=== PATIENT | male | born 1935 | race Caucasian/White ===

== ENCOUNTER 2020-03-19 12:53 | Emergency (ER) | payer MEDICARE, OTHER, SELFPAY ==
[2020-03-19] VITALS (15 sets, daily range): BP systolic 146–175; BP diastolic 78–99; PULSE 60–74; RESP 11–19; TEMP 36.4; O2SAT 97–100
--- NOTE | ~2020-03-19 | XR_ITS ---
EXAMINATION: XR chest 2V EXAM DATE: 03/19/2020 14:47 INDICATION: Right posterior chest pain. Symptoms about 10 days. TECHNIQUE: Frontal and lateral projections of the chest obtained and reviewed. Comparison is made to prior examination from 06/22/2019. FINDINGS: Moderate chronic hyperinflation. The lungs are clear. There are no pleural effusions. Car diac silhouette is prominent but magnified on this AP technique. There is no pneumothorax suspected . There are bony degenerative changes. IMPRESSION: 1. No acute cardiopulmonary findings. 2. Hyperinflation. Reviewed, dictated and finalized at location A.
--- NOTE | ~2020-03-19 | CT_ITS ---
EXAMINATION: CTA chest PE abdomen pel DATE: 03/19/2020 15:51 INDICATION: Right upper quadrant pain TECHNIQUE: Computed tomography angiography (CTA) of the chest was performed with 100 mL Omnipaque-350 intravenous contrast timed to evaluate the pulmonary arteries. Subsequent postcontrast images of the abdomen and pelvis are obtained. Coronal maximum intensity projection 3D-reconstructions were create d by the technologist. The dose-length product (DLP) was 2195.83 mGy-cm. Automated exposure control a nd iterative reconstruction technique were employed. COMPARISON: 03/13/2015 FINDINGS: CTA CHEST: The pulmonary arteries are well-opacified. No pulmonary embolism is identified. Calcified pulmonary nodules are consistent with old granulomatous disease. There is mild dependent atelectasis. No pleural effusion or pneumothorax is identified. No pathologically enlarged thoracic lymph nodes a re identified. The heart size is normal. Calcified atherosclerosis is noted. There is moderate thorac ic spondylosis. ABDOMEN/PELVIS CT: There is a moderate-sized sliding hiatal hernia. Subtle arterially enhancing cristy s in the left hepatic lobe are consistent with flash filling hemangiomas. The spleen, pancreas, gallb ladder, and adrenal glands are normal. Cysts of the kidneys measure up to 5.9 cm on the left. Peripel mario cysts are noted in both kidneys. There is a wedge-shaped peripheral defect in the lateral aspect of the left kidney, new since the prior examination, and likely reflecting treatment of the previousl y described left kidney mass which is no longer evident. An inferior vena cava filter is noted. No pa thologically enlarged abdominal or pelvic lymph nodes are identified. Colonic diverticulosis is prese nt without evidence of diverticulitis. The appendix is normal. There is no free intraperitoneal gas o r evidence of bowel obstruction. Orthopedic hardware is present in the left femoral neck. Moderate jennie mbar spondylosis is noted. IMPRESSION: 1. No pulmonary embolism identified. 2. No acute abnormality of the abdomen or pelvis. 3. Moderate-sized sliding hiatal hernia. Reviewed, dictated and finalized at location A.
--- NOTE | 2020-03-19 14:11 | ECG_ITS ---
Measurements Intervals [place] Rate: 66 P: -12 MD: 195 QRS: -15 QRSD: 121 T: 13 QT: 410 QTc: 430 Interpretive Statements SINUS RHYTHM RIGHT BUNDLE BRANCH BLOCK BASELINE ARTIFACT- I, II, AVR, V1 ABNORMAL ECG Electronically Signed On 03-19-2020 16:00:42 CDT by Renny Gamble D.O.
[2020-03-19 14:27] LABS: Add Urine Microscopic? NO; Appearance Urine Clear (Clear); Bilirubin Urine Negative (Negative); Blood Urine Negative (Negative); Color Urine Straw (Yellow); Glucose Urine UA Negative (Negative); Ketones Urine Negative (Negative); Leukocyte Esterase Ur Negative LEU/UL (Negative); Nitrate Urine Negative (Negative); Protein Urine Negative (Negative); RBC Urine 0-2 /hpf (0-2); Urobilinogen Urine Negative mg/dL (<2.0); WBC Urine 0-3 /hpf
[2020-03-19 14:41] LABS: Basophils Percent Auto 0.6 % (0.2-1.2); Eosinophils Absolute Auto 0.1 K/mm3 (0-0.3); Eosinophils Percent Auto 2.2 % (0-4.4); Hematocrit 37.7 % (42.0-52.0); Hemoglobin 12.3 g/dL (14.0-18.0); Immature Granulocyte Absolute 0.03 K/mm3 (0.00-0.031); Immature Granulocyte Percent A 0.6 % (0-0.5); Lymphocytes Absolute Auto 1.05 K/mm3 (0.9-3.2); Lymphocytes Percent Auto 21.2 % (18.3-44.2); Mean Corpuscular HGB Conc 32.6 g/dl (32-36); Mean Corpuscular Hemoglobin 28.8 pg (26-34); Mean Corpuscular Volume 88.3 fl (80-100); Mean Platelet Volume 10.4 fl (7.4-10.4); Monocytes Absolute Auto 0.6 K/mm3 (0.1-0.6); Monocytes Percent Auto 11.7 % (2.6-8.5); Neutrophils Absolute Auto 3.2 K/mm3 (1.3-6.7); Neutrophils Percent Auto 63.7 % (45.5-73.1); Platelet Count Result 188 k/mm3 (150-375); Red Blood Count 4.27 M/mm3 (4.6-6.20); Red Cell Distribution Width 16.1 % (11.5-14.5)
[2020-03-19 14:48] LABS: Anion Gap 10 mmol/L (8-16); Blood Urea Nitrogen 23 mg/dL (9-20); Calcium 9.2 mg/dL (8.4-10.2); Carbon Dioxide 27 mmol/L (22-30); Chloride 104 mmol/L (98-107); Estimated CRCL calculation 48 ml/min; Estimated Glomerular Filt Rate 48; Glucose 97 mg/dL (75-110); Potassium 4.1 mmol/L (3.4-5.0); Sodium 141 mmol/L (137-145)
[2020-03-19 14:50] LABS: INR 1.1; Prothrombin Time 13.7 Seconds (11.1-14.7)
[2020-03-19 14:59] LABS: D Dimer 1.37 ug/mL (<0.48)
[2020-03-19 15:00] LABS: NT Pro B Type Natriuretic Pept 159 PG/ML (5-100); Troponin I < 0.012 ng/mL (0.000-0.034)
--- NOTE | 2020-03-19 15:32 | ED.GENADULT ---
HPI - General Adult General Chief complaint: Chest Pain Stated complaint: side pain- pulled 10 days ago Time Seen by Provider: 03/19/20 14:15 Source: patient Limitations: no limitations History of Present Illness HPI narrative: [age] years old white male presents with right upper quadrant pain, intermittent, dull aching, radiating to the back started 10 days ago. Worse with certain movement, better at rest. Patient denies any fever, chills, nausea, vomiting, diarrhea, constipation, urinary symptoms, chest pain or shortness of breath. Patient denies having similar symptoms in the past. Patient denies history of abdominal surgery. Related Data Home Medications Medication Instructions Recorded Confirmed finasteride 5 mg PO HS 06/22/19 06/22/19 tamsulosin 0.4 mg PO HS 06/22/19 06/22/19 Adults Multivitamin 03/19/20 Dialyvite Vitamin D 03/19/20 Fiber (psyllium husk) 03/19/20 Glucosamine Msm 03/19/20 Refresh 03/19/20 docusate sodium 03/19/20 Allergies Allergy/AdvReac Type Severity Reaction Status Date / Time Aminoglycosides Allergy Unknown Unknown Verified 06/22/19 17:02 Macrolide Antibiotics Allergy Unknown Unknown Verified 06/22/19 21:30 Sulfa (Sulfonamide Allergy Unknown Unknown Verified 06/22/19 17:02 Antibiotics) ibuprofen AdvReac Gastrointestinal Verified 03/19/20 14:17 Upset Review of Systems Review of Systems: Narrative: CONSTITUTIONAL: Denies fever, chills, or sweats. EYES: Denies visual changes, redness, or discharge. ENT: Denies rhinorrhea, congestion, sore throat, or otalgia. CARDIOVASCULAR: Denies chest pain, palpitations, or edema. RESPIRATORY: Denies cough or dyspnea. GASTROINTESTINAL: Right upper quadrant pain GENITOURINARY: Denies dysuria or hematuria. SKIN: Denies rash or itching. MUSCULOSKELETAL: Denies back pain, joint pain, or myalgia. NEUROLOGIC: Denies headache, numbness, or weakness. PSYCHIATRIC: Denies anxiety or depression. [facility] Past Medical History Medical History (Updated 03/19/20 @ 17:45 by Gigi Maldonado MD) Arthritis BPH (benign prostatic hyperplasia) Hernia Lymphedema Prostate cancer Surgical History Surgical History H/O hernia repair History of bladder surgery History of hip surgery Family History Family History Mother Cerebrovascular accident Father Acute myocardial infarction Social History Social History Years smoked: 15 Smoking status: Former smoker Alcohol intake: current Substance use: never Gender identity (if verbalized by the patient): Male Spiritual care concerns: No Exam Narrative: Exam Narrative: General appearance: Well-developed, well-nourished Skin: Normal color Head: Normocephalic, nontraumatic Eyes: Clear conjunctiva ENT: Oropharynx normal, ears normal, nose normal Neck: Supple, nontender Chest and respiratory: Airway patent, no respiratory distress, no accessory muscle use Heart: Regular rate/rhythm Abdomen: Soft, moderate tenderness right upper quadrant with light palpation, positive Brower sign., no organomegaly, quiet bowel sounds Vascular: Normal peripheral pulses, normal capillary refill. Musculoskeletal: Normal range of motion, nontender back Neurologic: Alert and oriented ?3, CREDIT COORDINATOR is normal as tested, no gross motor deficit Course Course Emergency Course: Stable Vital Signs Vital signs: Vital Signs Temperature 36.4 C L 03/19/20 12:59 Pulse Rate 61 03/19/20 12:59 Respiratory Rate 17 03/19/20 12:59 Blood Pressure 158/78 H 03/19/20 12:59 Pulse Oximetry 99
[2020-03-19] MEDS: ONDANSETRON INJ 4 MG/2 ML VIAL IV PUSH (16:41)
[2020-03-19] MEDS: MORPHINE SULFATE (*CRX) 4 MG/ML INJ IV PUSH (16:42)
[2020-03-19 17:45] LABS: Troponin I < 0.012 ng/mL (0.000-0.034)
== END 2020-03-19 17:58 | disposition home or self-care (01) ==
PROVIDERS: Emergency Medicine; Emergency Medicine Emergency Medical Services; Emergency Provider Emergency Medicine; PCP Physician Assistant
DX: R10.11 Right upper quadrant pain (principal); K44.9 Diaphragmatic hernia without obstruction or gangrene; Z87.891 Personal history of nicotine dependence; M19.90 Unspecified osteoarthritis, unspecified site; N40.0 Benign prostatic hyperplasia without lower urinary tract symptoms; R94.31 Abnormal electrocardiogram [ECG] [EKG]; Z85.46 Personal history of malignant neoplasm of prostate
CPT/HCPCS: 36415; 71046; 71275; 74177; 80048; 81003; 83880; 84484; 85025; 85380; 85610; 85730; 93005; 96374; 96375; 99284; A9270; J2270; J2405; Q9967

== ENCOUNTER 2020-06-29 14:40 | Inpatient (IN) | payer MEDICARE, OTHER, SELFPAY ==
[2020-06-29] VITALS (13 sets, daily range): BP systolic 122–160; BP diastolic 70–96; PULSE 68–91; RESP 18; TEMP 36.4–36.7; O2SAT 96–100; BMI 33.5
--- NOTE | ~2020-06-29 | US_ITS ---
EXAMINATION: US venous doppler [facility] DATE: 06/30/2020 08:12 INDICATION: Lower limb pain and swelling TECHNIQUE: Grayscale ultrasound images without and with compression and Doppler ultrasound images of the left lower extremity veins were obtained. COMPARISON: 06/27/2019 FINDINGS: New noncompressible deep venous thrombosis in the left gastrocnemius vein. The visualized portions of left common femoral vein, profunda (deep) femoral vein, femoral vein, popliteal vein, peroneal veins , posterior tibial veins and greater saphenous vein outflow are patent. IMPRESSION: 1. [id number] acute deep venous thrombosis in the left gastrocnemius vein. Reviewed, dictated and finalized at location B. [facility] IMPRESSION: 1. [id number] acute deep venous thrombosis in the left gastrocnemius vein.
--- NOTE | 2020-06-29 15:13 | ED.GENADULT ---
HPI - General Adult General Chief complaint: Unspecified Stated complaint: swollen leg, rectal bleeding Time Seen by Provider: 06/29/20 15:13 History of Present Illness HPI narrative: 84 yo male w/ h/o lymphedema presents to the ED for LE pain. He reports that he has had chronic swelling to the LLE for many years. Just recently the swelling has gotten worse. In addition it is now slightly red and painful which is unusual. No fever or systemic symptoms. He also complains of a painful bump near his rectum. He has also noted some small streaks of blood on toilet paper when he wipes. He says that he had something similar years ago that required surgery. Related Data Home Medications Medication Instructions Recorded Confirmed finasteride 5 mg PO DAILY 06/22/19 06/29/20 tamsulosin 0.4 mg PO DAILY 06/22/19 06/29/20 Adults Multivitamin 1 tablet PO DAILY 03/19/20 06/29/20 Glucosamine Msm 1 cap PO DAILY 03/19/20 06/29/20 Refresh See Rx Instructions .ROUTE 03/19/20 06/29/20 .COMPLEX PRN Colace 100 mg PO BID 06/29/20 06/29/20 calcium polycarbophil 625 mg PO DAILY 06/29/20 06/29/20 cholecalciferol (vitamin D3) 2,000 units PO DAILY 06/29/20 06/29/20 Allergies Allergy/AdvReac Type Severity Reaction Status Date / Time Aminoglycosides Allergy Unknown Unknown Verified 06/29/20 20:12 Macrolide Antibiotics Allergy Unknown Unknown Verified 06/29/20 20:12 Sulfa (Sulfonamide Allergy Unknown Unknown Verified 06/29/20 20:12 Antibiotics) ibuprofen AdvReac Gastrointestinal Verified 06/29/20 20:12 Upset Review of Systems Review of Systems: All systems reviewed & are unremarkable except as noted in HPI and below Constitutional: Constitutional: Denies fatigue and Denies fever(s) ENT: Denies dizziness Cardiovascular: Cardiovascular: Denies chest pain Respiratory: Respiratory: Denies cough and Denies dyspnea Gastrointestinal: Gastrointestinal: Denies nausea and Denies vomiting Genitourinary: Genitourinary: Denies dysuria Integumentary/Breasts: Skin/Breast: Reports system reviewed and no additional complaints, except as docu Neurologic: Reports system reviewed and no additional complaints, except as documented PMFSH Past Medical History Medical History BPH (benign prostatic hyperplasia) Hernia Lymphedema Presence of IVC filter Surgical History Surgical History H/O hernia repair History of cataract surgery History of hip surgery Family History Family History Mother Cerebrovascular accident Father Acute myocardial infarction Social History Social History Social History: Patient drinks a couple beers 3-4 nights a week. He does not have any history of alcohol withdrawal. He quit smoking 40 years ago. He does not do drugs. He would like to be full code and if he were to come to a ventilator, he would not like to be on it very long. He says his children can make the decisions after Smoking packs per day: 2 Smoking cigarettes per day: 40.0 Years smoked: 20 Smoking pack-years: 40.00 Smoking status: Former smoker Tobacco type: cigarettes Alcohol intake: current Drinks per week: 10 Substance use: never Gender identity (if verbalized by the patient): Male Spiritual care concerns: No Exam Const: General: healthy appearing, no acute distress and alert Orientation/consciousness: patient oriented x3 HENMT: Head: normal to inspection Neck: Neck: normal visual inspection and no lymphadenopathy Chest: Chest palpation & inspection: no tenderness Resp: Effort & Inspection: normal respiratory effort Auscultation: clear to auscultation bilaterally, no rales, no rhonchi and no wheezes Cardio: Jugular venous distension: no JVD Rate: regular rate Rhythm: regular rhythm
--- NOTE | 2020-06-29 16:19 | ECG_ITS ---
Measurements Intervals [place] Rate: 70 P: 26 [place]: 213 QRS: 12 QRSD: 120 T: 24 QT: 384 QTc: 417 Interpretive Statements SINUS RHYTHM WITH FIRST DEGREE AV BLOCK VENTRICULAR PREMATURE COMPLEX RIGHT BUNDLE BRANCH BLOCK BASELINE ARTIFACT- I, II, III, AVL, AVF, V5-V6 ABNORMAL ECG Electronically Signed On 06-30-2020 7:10:01 CUSTOMER RELATIONS CONSULTANT by Renny Gamble D.O.
[2020-06-29 17:01] LABS: Basophils Percent Auto 0.3 % (0.2-1.2); Eosinophils Absolute Auto 0.1 K/mm3 (0-0.3); Eosinophils Percent Auto 1.5 % (0-4.4); Hemoglobin 11.5 g/dL (14.0-18.0); Immature Granulocyte Absolute 0.04 K/mm3 (0.00-0.031); Immature Granulocyte Percent A 0.6 % (0-0.5); Lymphocytes Absolute Auto 0.96 K/mm3 (0.9-3.2); Lymphocytes Percent Auto 15.5 % (18.3-44.2); Mean Corpuscular HGB Conc 32.9 g/dl (32-36); Mean Corpuscular Hemoglobin 29.6 pg (26-34); Mean Platelet Volume 10.3 fl (7.4-10.4); Monocytes Absolute Auto 1.2 K/mm3 (0.1-0.6); Monocytes Percent Auto 18.9 % (2.6-8.5); Neutrophils Absolute Auto 3.9 K/mm3 (1.3-6.7); Neutrophils Percent Auto 63.2 % (45.5-73.1); Platelet Count Result 186 k/mm3 (150-375); Red Blood Count 3.89 M/mm3 (4.6-6.20); Red Cell Distribution Width 16.1 % (11.5-14.5); White Blood Count 6.2 K/mm3 (4.5-10.0)
[2020-06-29 17:07] LABS: INR 1.1; Prothrombin Time 14.7 Seconds (11.1-14.7)
[2020-06-29 17:08] LABS: Partial Thromboplastin Time 36.6 SECONDS (22.3-36.8)
[2020-06-29 17:20] LABS: Anion Gap 8 mmol/L (8-16); Blood Urea Nitrogen 26 mg/dL (9-20); Calcium 8.5 mg/dL (8.4-10.2); Carbon Dioxide 26 mmol/L (22-30); Chloride 101 mmol/L (98-107); Estimated CRCL calculation 47 ml/min; Estimated Glomerular Filt Rate 48; Glucose 112 mg/dL (75-110); Sodium 135 mmol/L (137-145)
[2020-06-29 17:30] LABS: NT Pro B Type Natriuretic Pept 167 PG/ML (5-100); Troponin I 0.022 ng/mL (0.000-0.034)
--- NOTE | 2020-06-29 19:59 | ADMGEN ---
This patient, Raul Waters, was admitted to Medical Room 348-01. Patient/family oriented to hospital policies and general routines including ID bracelet, bed and alarms, visiting hours, pain management, procedures, bathroom and other care routines, personal items, smoking policy, room service/diet, and visiting hours. Information on how to activate the Rapid Response Team has been discussed. Patient/Family are encouraged to report perceived risks to care and to ask questions if they do not understand what they are told or what they should do.
[2020-06-29] MEDS: PANTOPRAZOLE 40 MG TABLET PO (23:22)
[2020-06-29] MEDS: DOCUSATE SODIUM 100 MG CAPSULE PO (23:22)
[2020-06-29] MEDS: TAMSULOSIN HCL 0.4 MG CAPSULE PO (23:22)
[2020-06-30 05:21] VITALS: BP 134/72; PULSE 77; RESP 14; TEMP 36.2; O2SAT 96
[2020-06-30 06:08] LABS: Estimated CRCL calculation 44 ml/min; Estimated Glomerular Filt Rate 44
[2020-06-30 09:00] VITALS: O2SAT 97
[2020-06-30] MEDS: MULTIVITAMINS THERAPEUTIC TAB (*BKC) 1 TABLET PO (09:10)
[2020-06-30] MEDS: CHOLECALCIFEROL 1,000 UNITS TABLET 2000 UNITS PO (09:10)
[2020-06-30] MEDS: calcium polycarbophiL 625 MG TABLET PO (09:11)
[2020-06-30] MEDS: DOCUSATE SODIUM 100 MG CAPSULE PO ×2 (09:11→20:18)
[2020-06-30] MEDS: FINASTERIDE 5 MG TABLET PO (09:11)
[2020-06-30] MEDS: PANTOPRAZOLE 40 MG TABLET PO ×2 (10:56→20:18)
--- NOTE | 2020-06-30 11:14 | PM.IMHP ---
H&P: HPI History of Present Illness Date/Time: 06/30/20 11:14 Chief Complaint: Left leg swelling Narrative: Raul Watesr is a 84 year old male with a history of DVT, PE, IVC filter, and lymphedema who presented emergency room for redness and pain to the left lower extremity. Patient states he has chronic lymphedema which causes his leg to be chronically swollen and he does not think it is any more swollen than normal but has noticed in the last 3- 4 days that he has been having pain into the area and some redness. He rates his pain a 2-3 at this time. He has not had any shortness of breath, dyspnea on exertion, chest pain, shortness of breath, fevers, chills, cough, abdominal pain, heartburn symptoms, black stool or passing out. He has noticed some loose stools occasionally but nothing significant. He also mentions that he has rectal pain. He has a past what I think is a fistula about 30 years ago and he is worried that is what it is. He got an IVC filter from the [place] years ago. He has no family history of DVT and states he has been walking around per usual at home and has not been more sedentary lately. He does not utilize a walker or any other assistive device and does not have any falls. Review of Systems Review of Systems: All systems reviewed & are unremarkable except as noted in HPI and below PMFSH Past Medical History Medical History (Updated 06/30/20 @ 12:02 by Ventura Vance MD) BPH (benign prostatic hyperplasia) Hernia Lymphedema Presence of IVC filter Surgical History Surgical History (Updated 06/30/20 @ 12:19 by Arleen Juarez PA-C) H/O hernia repair History of cataract surgery History of hip surgery Family History Family History Mother Cerebrovascular accident Father Acute myocardial infarction Social History Social History (Updated 06/30/20 @ 12:20 by Arleen Juarez PA-C) Social History: Patient drinks a couple beers 3-4 nights a week. He does not have any history of alcohol withdrawal. He quit smoking 40 years ago. He does not do drugs. He would like to be full code and if he were to come to a ventilator, he would not like to be on it very long. He says his children can make the decisions after Smoking packs per day: 2 Smoking cigarettes per day: 40.0 Years smoked: 20 Smoking pack-years: 40.00 Smoking status: Former smoker Tobacco type: cigarettes Alcohol intake: current Drinks per week: 10 Substance use: never Gender identity (if verbalized by the patient): Male Spiritual care concerns: No Meds Home Medications and Allergies Home Medications Medication Instructions Recorded Confirmed Type finasteride 5 mg PO DAILY 06/22/19 06/29/20 History tamsulosin 0.4 mg PO DAILY 06/22/19 06/29/20 History pantoprazole 40 mg PO Q12HR #60 tablet 06/25/19 06/29/20 Rx Adults Multivitamin 1 tablet PO DAILY 03/19/20 06/29/20 History Glucosamine Msm 1 cap PO DAILY 03/19/20 06/29/20 History Refresh See Rx Instructions .ROUTE 03/19/20 06/29/20 History .COMPLEX PRN Colace 100 mg PO BID 06/29/20 06/29/20 History calcium polycarbophil 625 mg PO DAILY 06/29/20 06/29/20 History cholecalciferol (vitamin D3) 2,000 units PO DAILY 06/29/20 06/29/20 History Allergies Allergy/AdvReac Type Severity Reaction Status Date / Time Aminoglycosides Allergy Unknown Unknown Verified 06/29/20 20:12 Macrolide Antibiotics Allergy Unknown Unknown Verified 06/29/20 20:12 Sulfa (Sulfonamide Allergy Unknown Unknown Verified 06/29/20 20:12 Antibiotics) ibuprofen AdvReac Gastrointestinal Verified 06/29/20 20:12 Upset Vital Signs Vital Signs - 24 hr 06/29/20 14:43 06/29/20 16:00 06/29/20 16:52 Temperature 97.7 F Pulse Rate 91 68 68 Respiratory Rate 18 18 Blood Pressure 152/76 H 122/96 H Pulse Oximetry 98 100 06/29/20 18:35 06/29/20 18:46 06/29/20 18:50 Temperature Pulse Rate 78 Respirato
--- NOTE | 2020-06-30 11:58 | WPDGICN ---
Assessment and Plan Assessment and plan (1) GERD (gastroesophageal reflux disease): Code(s): K21.9 - Gastro-esophageal reflux disease without esophagitis Status: Acute Assessment and Plan: Patient identified as having severe GE reflux 1 year ago. At that time rather significant esophagitis was identified. Patient has been maintained on pantoprazole 40 mg p.o. b.i.d. since that time. Currently has no symptoms. His hemoglobin has returned to normal. Stools are brown in nature with no evidence of GI blood loss. At the present time I see no contraindication to anticoagulation if absolutely required. Should there be any indication of bleeding follow-up endoscopy can be performed if required. At this present time would suggest monitoring hemoglobin. I will defer necessity of anticoagulation to the primary care service. Patient should remain on pantoprazole 40 mg p.o. b.i.d. along with anti-reflux measures long-term these should include elevating head of bed at night no late snacks. (2) Lymphedema: Code(s): I89.0 - Lymphedema, not elsewhere classified Status: Acute (3) Presence of IVC filter: Code(s): Z95.828 - Presence of other vascular implants and grafts Status: Acute (4) DVT (deep venous thrombosis): Qualifiers: Affected thrombotic vein of extremity: popliteal Chronicity: acute DVT location: lower extremity Laterality: right Qualified Code(s): I82.431 - Acute embolism and thrombosis of right popliteal vein Code(s): I82.409 - Acute embolism and thrombosis of unspecified deep veins of unspecified lower extremity Status: Acute GI Consult Note Consult date/time: 06/30/20 11:58 HPI: Raul Waters is a 84 year old male I am asked to see at the request of the hospitalist service. I am asked to see the patient because of history of a severe esophagitis. Patient with a history of lymphedema. He developed left lower extremity pain and for this reason presented to the emergency room. He was noted to have some erythema a venous Doppler was ordered and it was felt to show a DVT in the left lower extremity. Patient has a distant history of an IVC filter. There is concern over safety of anticoagulation for this reason I have been consulted. Patient underwent endoscopy 1 year ago in June of 2019. At that time severe esophagitis was identified. Patient has been maintained on pantoprazole 40 mg p.o. BID since that time. At that time there was concern over GI blood loss. The patient currently has no pain no dysphagia, no bleeding. His stools are normal and brown in nature. He denies abdominal pain. He continues on pantoprazole b.i.d.. Family history is noncontributory. Review of Systems Review of Systems: All systems reviewed & are unremarkable except as noted in HPI and below PMFSH Past Medical History Medical History (Updated 06/30/20 @ 12:02 by Ventura Vance MD) BPH (benign prostatic hyperplasia) Hernia Lymphedema Presence of IVC filter Surgical History Surgical History (Updated 06/30/20 @ 11:34 by Arleen Juarez PA-C) H/O hernia repair History of hip surgery Family History Family History Mother Cerebrovascular accident Father Acute myocardial infarction Social History Social History Smoking packs per day: 2 Smoking cigarettes per day: 40.0 Years smoked: 20 Smoking pack-years: 40.00 Smoking status: Former smoker Tobacco type: cigarettes Alcohol intake: current Drinks per week: 10 Substance use: never Gender identity (if verbalized by the patient): Male Spiritual care concerns: No Meds Home Medications and Allergies Home Medications Medication Instructions Recorded Confirmed Type finasteride 5 mg PO DAILY 06/22/19 06/29/20 History tamsulosin 0.4 mg PO DAILY 06/22/19 06/29/20 History pantoprazol
[2020-06-30] MEDS: ENOXAPARIN 120 MG/0.8 ML SYRINGE SUB-Q ×2 (13:05→20:18)
[2020-06-30 14:00] VITALS: BP 150/64; PULSE 75; RESP 18; TEMP 36.2; O2SAT 97
[2020-06-30] MEDS: SILVERGEL (ELTA) 45 ML 1 APPLIC TOPICAL (18:12)
[2020-06-30] MEDS: TAMSULOSIN HCL 0.4 MG CAPSULE PO (20:18)
[2020-06-30 21:33] VITALS: BP 126/58; PULSE 70; RESP 18; TEMP 36.4; O2SAT 97
[2020-07-01 00:53] LABS: IFOB Positive Control Positive; Immunochemical Fecal Occult Bl Negative (N)
[2020-07-01 04:49] VITALS: BP 126/64; PULSE 65; RESP 16; TEMP 36.1; O2SAT 97
[2020-07-01 05:38] LABS: Basophils Percent Auto 0.6 % (0.2-1.2); Eosinophils Absolute Auto 0.1 K/mm3 (0-0.3); Eosinophils Percent Auto 2.5 % (0-4.4); Immature Granulocyte Absolute 0.04 K/mm3 (0.00-0.031); Immature Granulocyte Percent A 0.8 % (0-0.5); Lymphocytes Absolute Auto 1.57 K/mm3 (0.9-3.2); Lymphocytes Percent Auto 30.1 % (18.3-44.2); Mean Corpuscular HGB Conc 33.3 g/dl (32-36); Mean Corpuscular Hemoglobin 29.6 pg (26-34); Mean Corpuscular Volume 88.7 fl (80-100); Monocytes Absolute Auto 0.9 K/mm3 (0.1-0.6); Neutrophils Absolute Auto 2.6 K/mm3 (1.3-6.7); Platelet Count Result 198 k/mm3 (150-375); Red Blood Count 3.72 M/mm3 (4.6-6.20); Red Cell Distribution Width 15.9 % (11.5-14.5); White Blood Count 5.2 K/mm3 (4.5-10.0)
[2020-07-01 05:57] LABS: Alanine Aminotransferase 11 U/L (4-50); Albumin Level 3.5 g/dL (3.5-5.1); Alkaline Phosphatase 68 U/L (38-126); Anion Gap 5 mmol/L (8-16); Aspartate Amino Transferase 19 U/L (17-59); Bilirubin,Total 0.5 mg/dL (0.2-1.3); Blood Urea Nitrogen 20 mg/dL (9-20); CRP 3.7 mg/dL (<1.0); Calcium 8.7 mg/dL (8.4-10.2); Carbon Dioxide 27 mmol/L (22-30); Chloride 105 mmol/L (98-107); Estimated CRCL calculation 44 ml/min; Estimated Glomerular Filt Rate 44; Glucose 96 mg/dL (75-110); Potassium 3.9 mmol/L (3.4-5.0); Sodium 137 mmol/L (137-145)
--- NOTE | 2020-07-01 07:12 | WPDGIPROGNO ---
Progress Note: A&P Assessment and Plan (1) GERD (gastroesophageal reflux disease): Code(s): K21.9 - Gastro-esophageal reflux disease without esophagitis Status: Acute Assessment and Plan: Patient had rather severe erosive esophagitis by endoscopy year ago which time he had some bleeding. He has had no bleeding subsequently. Maintained on pantoprazole 40 mg p.o. b.i.d.. He should avoid nonsteroidal anti-inflammatory agents. Current stool is Hemoccult negative and hemoglobin is return to normal. No need to repeat investigation at this time. Should anticoagulation be required it should be okay at this time. (2) Lymphedema: Code(s): I89.0 - Lymphedema, not elsewhere classified Status: Acute Subjective Date/time seen: 07/01/20 07:12 Patient comfortable at rest. Denies abdominal pain. Denies heartburn. States his stools are brown and normal. Hemoccult negative on exam. Denies significant pain to his left leg at this time. States his chronically swollen. Review of Systems Review of Systems: All systems reviewed & are unremarkable except as noted in HPI and below Exam Narrative: Exam Narrative: Physical exam patient is alert. Vital signs stable. He is anicteric. Very hard of hearing. Lungs are clear. Heart without murmur. Abdomen bowel sounds present soft nontender with no organomegaly. Left lower extremity is swollen chronically mild erythema noted. Objective Data Vital Signs Vital Signs: Vital Signs - 24 hr 06/30/20 09:00 06/30/20 14:00 06/30/20 21:33 Temperature 97.1 F L 97.5 F L Pulse Rate 75 70 Respiratory Rate 18 18 Blood Pressure 150/64 H 126/58 L Pulse Oximetry 97 97 97 07/01/20 04:49 Temperature 97 F L Pulse Rate 65 Respiratory Rate 16 Blood Pressure 126/64 Pulse Oximetry 97 Intake/Output Intake/Output: Intake & Output 06/28/20 06/29/20 06/30/20 07/01/20 23:59 23:59 23:59 23:59 Intake Total 500 1740 250 Balance 500 1740 250 Meds/Results Medications: Active Medications Generic Name Dose Route Start Last Admin Trade Name Freq PRN Reason Stop Dose Admin Artificial Tears 1 drop 06/29/20 22:42 06/30/20 20:22 Artificial Tears Op Soln 15 Ml Bottle EACH EYE 1 drop Q4H PRN Administration Dry Eye(s) Calcium Polycarbophil 625 mg 06/30/20 09:00 06/30/20 09:11 Calcium Polycarbophil 625 Mg Tablet PO 07/30/20 09:01 625 mg DAILY HIGINIO Administration Docusate Sodium 100 mg 06/29/20 22:40 06/30/20 20:18 Docusate Sodium 100 Mg Capsule PO 100 mg Q12HR HIGINIO Administration Enoxaparin Sodium 120 mg 06/30/20 12:00 06/30/20 20:18 Enoxaparin 120 Mg/0.8 Ml Syringe SUB-Q 120 mg Q12HR HIGINIO Administration Finasteride 5 mg 06/30/20 09:00 06/30/20 09:11 Finasteride 5 Mg Tablet PO 5 mg DAILY HIGINIO Administration Hydralazine HCl 10 mg 06/30/20 15:25 Hydralazine Hcl 20 Mg/Ml Vial IV PUSH Q8H PRN systolic >170 Vancomycin HCl 1,750 mg in 500 mls @ 250 mls/hr 06/30/20 20:00 06/30/20 22:22 Vancomycin 1,750 Mg/D5w 500 Ml IVPB Infused Q24H HIGINIO Infusion Multivitamins Therapeutic 1 tablet 06/30/20 09:00 06/30/20 09:10 Multivitamins Therapeutic Tab (*Bkc) PO 1 tablet QAM HIGINIO Administration Pantoprazole Sodium 40 mg 06/29/20 22:45 06/30/20 20:18 Pantoprazole 40 Mg Tablet PO 40 mg Q12HR HIGINIO Administration Silver Nitrate 1 applic 06/30/20 17:00 06/30/20 18:12 Silvergel (Elta) 45 Ml TOPICAL 1 applic BID HIGINIO Administration Tamsulosin HCl 0.4 mg 06/29/20 23:20 06/30/20 20:18 Tamsulosin Hcl 0.4 Mg Capsule PO 0.4 mg HS [facility] Administration Vitamin D 2,000 units 06/30/20 09:00 06/30/20 09:10 Cholecalciferol 1,000 Units Tablet PO 07/30/20 09:01 2,000 units DAILY HIGINIO Administration Radiology Results: ITS Impressions Venous Doppler Study 06/30/20 08:17 IMPRESSION: 1. [id number] acute deep venous thrombosis in the left gastrocnemius vein
[2020-07-01] MEDS: CHOLECALCIFEROL 1,000 UNITS TABLET 2000 UNITS PO (09:05)
[2020-07-01] MEDS: DOCUSATE SODIUM 100 MG CAPSULE PO ×2 (09:06→20:14)
[2020-07-01] MEDS: FINASTERIDE 5 MG TABLET PO (09:06)
[2020-07-01] MEDS: calcium polycarbophiL 625 MG TABLET PO (09:06)
[2020-07-01] MEDS: PANTOPRAZOLE 40 MG TABLET PO ×2 (09:06→20:14)
[2020-07-01] MEDS: ENOXAPARIN 120 MG/0.8 ML SYRINGE SUB-Q (09:07)
[2020-07-01] MEDS: SILVERGEL (ELTA) 45 ML 1 APPLIC TOPICAL ×2 (09:08→16:30)
[2020-07-01] MEDS: MULTIVITAMINS THERAPEUTIC TAB (*BKC) 1 TABLET PO (11:12)
--- NOTE | 2020-07-01 11:19 | PM.IMPN ---
Progress Note: A&P Assessment and Plan (1) Left leg DVT: Qualifiers: Affected thrombotic vein of extremity: calf muscle vein Chronicity: acute Qualified Code(s): I82.462 - Acute embolism and thrombosis of left calf muscular vein Code(s): I82.402 - Acute embolism and thrombosis of unspecified deep veins of left lower extremity Status: Acute Assessment and Plan: Ultrasound demonstrates [id number] acute DVT in the left gastrocnemius vein. Patient does have IVC filter in place. In the past, he was not a good candidate for an systemic anticoagulation due to GI bleeding from severe esophagitis around 1 year ago. Seen by GI, Dr. Vance, appreciate recommendations. Patient was started on therapeutic Lovenox yesterday. Case management checking pricing for Eliquis, hope to start Eliquis this evening or tomorrow morning. Given his history of GI bleeding, feel it is prudent to monitor overnight. Monitor Hgb and monitor for any bleeding. (2) Cellulitis of left leg: Code(s): L03.116 - Cellulitis of left lower limb Status: Acute Assessment and Plan: Left leg appears to have cellulitic changes, patient started on antibiotics in the ED. Continue vancomycin. Patient notes his left leg swelling is at baseline, his left leg is always more swollen and he notes it is not any more swollen than his normal. 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 Monitor closely while on Lovenox and transitioning to NOAC. (4) History of GI bleed: Code(s): Z87.19 - Personal history of other diseases of the digestive system Status: Acute Assessment and Plan: As noted above, GI bleed in Jun 2019 from esophagitis and duodenitis. Continue Protonix BID. (5) Rectal abnormality: Code(s): K62.9 - Disease of anus and rectum, unspecified Status: Acute Assessment and Plan: Small <1cm pimple-like wound noted near the rectum, seen by pump and still operator. Continue local wound care. (6) BPH (benign prostatic hyperplasia): Qualifiers: Lower urinary tract symptom presence: unspecified whether lower urinary tract symptoms present Qualified Code(s): N40.0 - Benign prostatic hyperplasia without lower urinary tract symptoms Code(s): N40.0 - Benign prostatic hyperplasia without lower urinary tract symptoms Status: Chronic Assessment and Plan: Continue tamsulosin and finasteride. (7) Presence of IVC filter: Code(s): Z95.828 - Presence of other vascular implants and grafts Status: Acute Assessment and Plan: [facility], seen on the CT abdomen pelvis from 2019 Subjective Date/time seen: 07/01/20 1030 Interval history: Mr. Waters is an 84yo M admitted for left lower extremity DVT and cellulitis. He reports feeling well today and thinks his left leg pain and redness is improving. He denies chest pain or shortness of breath. He has tolerated oral intake without nausea or vomiting. He is eager for discharge. Review of Systems Review of Systems: All systems reviewed & are unremarkable except as noted in HPI and below Exam Narrative: Exam Narrative: General: Elderly male resting comfortably sitting up in bed in no acute distress. HEENT: Normocephalic, EOMI, oral mucosa moist. Hard of hearing ++. Cardiovascular: Rate and rhythm are regular. Respiratory: Lungs clear to auscultation bilaterally. Respirations even and non-labored. Tolerating room air.
[2020-07-01 14:00] VITALS: BP 141/59; PULSE 66; RESP 12; TEMP 37.1; O2SAT 96
[2020-07-01] MEDS: TAMSULOSIN HCL 0.4 MG CAPSULE PO (20:14)
[2020-07-01] MEDS: APIXABAN 5 MG TABLET 10 MG PO (20:14)
[2020-07-01 20:25] VITALS: BP 118/69; PULSE 66; RESP 18; TEMP 36.1; O2SAT 95
[2020-07-02 05:19] VITALS: BP 136/68; PULSE 76; RESP 18; TEMP 36.1; O2SAT 96
[2020-07-02 06:05] LABS: Basophils Percent Auto 0.4 % (0.2-1.2); Eosinophils Absolute Auto 0.2 K/mm3 (0-0.3); Eosinophils Percent Auto 3.5 % (0-4.4); Hematocrit 31.9 % (42.0-52.0); Hemoglobin 10.5 g/dL (14.0-18.0); Immature Granulocyte Absolute 0.06 K/mm3 (0.00-0.031); Immature Granulocyte Percent A 1.3 % (0-0.5); Lymphocytes Absolute Auto 1.28 K/mm3 (0.9-3.2); Lymphocytes Percent Auto 27.8 % (18.3-44.2); Mean Corpuscular HGB Conc 32.9 g/dl (32-36); Mean Corpuscular Hemoglobin 28.9 pg (26-34); Mean Corpuscular Volume 87.9 fl (80-100); Mean Platelet Volume 10.7 fl (7.4-10.4); Monocytes Absolute Auto 0.8 K/mm3 (0.1-0.6); Monocytes Percent Auto 18.3 % (2.6-8.5); Neutrophils Absolute Auto 2.2 K/mm3 (1.3-6.7); Neutrophils Percent Auto 48.7 % (45.5-73.1); Platelet Count Result 231 k/mm3 (150-375); Red Blood Count 3.63 M/mm3 (4.6-6.20); Red Cell Distribution Width 15.8 % (11.5-14.5); White Blood Count 4.6 K/mm3 (4.5-10.0)
[2020-07-02 06:19] LABS: Anion Gap 4 mmol/L (8-16); Blood Urea Nitrogen 19 mg/dL (9-20); Calcium 8.4 mg/dL (8.4-10.2); Carbon Dioxide 30 mmol/L (22-30); Chloride 103 mmol/L (98-107); Estimated CRCL calculation 42 ml/min; Estimated Glomerular Filt Rate 41; Glucose 95 mg/dL (75-110); Magnesium 2.1 mg/dL (1.6-2.3); Sodium 137 mmol/L (137-145)
[2020-07-02] MEDS: DOCUSATE SODIUM 100 MG CAPSULE PO (08:30)
[2020-07-02] MEDS: PANTOPRAZOLE 40 MG TABLET PO (08:30)
[2020-07-02] MEDS: APIXABAN 5 MG TABLET 10 MG PO (08:30)
[2020-07-02] MEDS: MULTIVITAMINS THERAPEUTIC TAB (*BKC) 1 TABLET PO (08:31)
[2020-07-02] MEDS: calcium polycarbophiL 625 MG TABLET PO (08:31)
[2020-07-02] MEDS: FINASTERIDE 5 MG TABLET PO (08:31)
[2020-07-02] MEDS: SILVERGEL (ELTA) 45 ML 1 APPLIC TOPICAL (08:31)
[2020-07-02] MEDS: CHOLECALCIFEROL 1,000 UNITS TABLET 2000 UNITS PO (08:31)
--- NOTE | 2020-07-02 09:53 | PM.DS ---
DS: Admitting Diagnosis Admitting Diagnosis Admitting Diagnosis: left leg DVT DS: Discharge Diagnosis Discharge Diagnosis (1) Left leg DVT: Qualifiers: Affected thrombotic vein of extremity: calf muscle vein Chronicity: acute Qualified Code(s): I82.462 - Acute embolism and thrombosis of left calf muscular vein Code(s): I82.402 - Acute embolism and thrombosis of unspecified deep veins of left lower extremity Status: Acute Assessment and Plan: Date of Admission 06/29/20 Date of Discharge/DOS 07/02/20 Mr. Waters is a pleasant 84yo M with history of chronic normocytic anemia, history of GI bleed due to severe esophagitis around 1 year ago, history of previous DVT/PE s/p IVC placement, BPH who presented to the ED for evaluation of left leg pain and redness. He described that his left leg is always more swollen than his right. He noted his left leg was not any more swollen than usual, but he noted over the last few days prior to arrival he was having increased pain with standing and walking on his left leg. Redness and tenderness to touch on the right leg was also new. Ultrasound demonstrated a below the knee acute DVT in the left gastrocnemius vein. As mentioned, he does have an IVC filter in place. In the past, he was not a good candidate for any systemic anticoagulation due to GI bleeding from severe esophagitis around 1 year ago. He was evaluated here by GI, Dr. Vance, noted his esophagitis had been well-controlled with BID proton pump inhibitor therapy. The IVC filter will help prevent migration/any formation of large PE, however it was felt that he was reasonably safe to start systemic anticoagulation for his new left leg DVT. He was started on therapeutic Lovenox and transitioned to oral Eliquis. He will follow-up with his primary care provider at the [facility] on Tuesday for recommendations on duration of anticoagulation therapy. May benefit from repeat ultrasound of lower extremities down the road if he can avoid indefinite anticoagulation. He was monitored closely while started on anticoagulation at the hospital and he did not show any signs or symptoms of acute bleeding Hgb remains stable. He was also treated with 4 days of IV vancomycin for possible overlying cellulitis over the left lower leg. This area of erythema appears improved after being on antibiotics, thus will prescribe oral Augmentin at discharge to complete a 7-day course of antibiotics. He is hemodynamically stable for discharge on 07/02/20 with Eliquis and instructions to follow-up with his primary care provider. (2) Cellulitis of left leg: Code(s): L03.116 - Cellulitis of left lower limb Status: Acute Assessment and Plan: Left leg appears to have cellulitic changes, patient started on antibiotics in the ED. Treated with 4 days of IV vancomycin, discharged with oral Augmentin. Patient notes his left leg swelling is at baseline, his left leg is always more swollen and he notes it is not any more swollen than his normal. 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 (4) History of GI bleed: Code(s): Z87.19 - Personal history of other diseases of the digestive system Status: Acute Assessment and Plan: As noted above, GI bleed in Jun 2019 from esophagitis and duodenitis. Continue Protonix BID. (5) Rectal abnormality: Code(s): K62.9 - Disease of anus and rectum, unspecified Status: Acute Assessment and Plan: Small <1cm pimple-like wound noted near the rectum, seen by parachute rigger. Continue local wound care. (6) BPH (benign pro
== END 2020-07-02 11:25 | disposition home or self-care (01) | DRG 264 ==
LOC: ANHED 18:51 → ANH3MED 19:09
PROVIDERS: Internal Medicine Gastroenterology; Physician Assistant; Admitting Provider Internal Medicine; Emergency Provider Emergency Medicine; Visit Provider Physician Assistant
DX: I82.462 Acute embolism and thrombosis of left calf muscular vein (principal); L03.116 Cellulitis of left lower limb; K62.9 Disease of anus and rectum, unspecified; I89.0 Lymphedema, not elsewhere classified; D50.0 Iron deficiency anemia secondary to blood loss (chronic); K21.9 Gastro-esophageal reflux disease without esophagitis; N40.0 Benign prostatic hyperplasia without lower urinary tract symptoms; Z95.828 Presence of other vascular implants and grafts; Z87.891 Personal history of nicotine dependence; Z86.718 Personal history of other venous thrombosis and embolism; Z86.711 Personal history of pulmonary embolism; Z87.19 Personal history of other diseases of the digestive system
CPT/HCPCS: 36415; 80048; 80076; 82274; 82565; 83735; 83880; 84484; 85025; 85610; 85730; 86140; 93005; 93971; 96365; 96366; 96372; 99285; A9270; G0378; J1650; J3370

== ENCOUNTER 2020-07-22 12:29 | Emergency (ER) | payer MEDICARE, OTHER, SELFPAY ==
--- NOTE | ~2020-07-22 | XR_ITS ---
XR chest 2V DATE: 07/22/2020 13:01 INDICATION: Shortness of breath TECHNIQUE: AP and lateral views COMPARISON: 03/19/2020 CTA chest abdomen pelvis 03/19/2022 view chest FINDINGS: Heart size is within normal range. Is aortic tortuosity. No hilar or mediastinal enlargemen t is evident. No pulmonary infiltrate or consolidation, pleural effusion or pulmonary vascular congestion or pneumo thorax. Diffuse osteopenia. IMPRESSION: No active cardiac pulmonary disease Aortic tortuosity Diffuse osteopenia Reviewed, dictated and finalized at location [facility]. LE END PRODUCTION GRINDER
--- NOTE | ~2020-07-22 | CT_ITS ---
EXAMINATION: CTA chest PE protocol DATE: 07/22/2020 14:43 INDICATION: Shortness of breath for 2 days TECHNIQUE: Computed tomography angiography (CTA) of the chest was performed with 100 mL Omnipaque-350 intravenous contrast timed to evaluate the pulmonary arteries. Coronal maximum intensity projection 3D-reconstructions were created by the technologist. Automated exposure control and iterative reconst ruction technique were employed. Exam dose: 775.76 mGy-cm total exam DLP. COMPARISON: July 22, 2020 2 view chest 03/19/2020 CT pulmonary scan images FINDINGS: There is diagnostic contrast enhancement of the pulmonary arteries and no evidence of pulmo nary embolism. No thoracic aortic aneurysm or dissection. Cardiomegaly. No pericardial or pleural effusion. There are bilateral calcified pulmonary granulomas. No pulmonary infiltrate or consolidation or pulmo nary mass lesion is evident. Approximately 6.4 cm upper pole left renal cyst is incidentally noted. Normal morphology of the adrenal glands. Small sliding hiatal hernia. Diffuse osteopenia. No suspicious osteolytic or osteoblastic lesions are identified. IMPRESSION: No evidence of pulmonary embolism Reviewed, dictated and finalized at [facility]. Reviewed, dictated and finalized at location [facility]. IME BABYSITTER
[2020-07-22 12:40] VITALS: BP 149/79; PULSE 80; RESP 16; TEMP 37.1; O2SAT 96
--- NOTE | 2020-07-22 12:49 | ECG_ITS ---
Measurements Intervals [place] Rate: 61 P: 108 MO: 234 QRS: -12 QRSD: 120 T: 21 QT: 420 QTc: 424 Interpretive Statements SINUS RHYTHM WITH FIRST DEGREE AV BLOCK VENTRICULAR PREMATURE COMPLEX RIGHT BUNDLE BRANCH BLOCK ABNORMAL ECG Electronically Signed On 07-22-2020 13:05:46 COKE DRAWER HAND by Renny Gamble D.O.
[2020-07-22 13:13] LABS: Basophils Percent Auto 0.6 % (0.2-1.2); Eosinophils Absolute Auto 0.1 K/mm3 (0-0.3); Eosinophils Percent Auto 2.1 % (0-4.4); Hematocrit 37.2 % (42.0-52.0); Hemoglobin 12.1 g/dL (14.0-18.0); Immature Granulocyte Absolute 0.04 K/mm3 (0.00-0.031); Immature Granulocyte Percent A 0.8 % (0-0.5); Lymphocytes Absolute Auto 0.89 K/mm3 (0.9-3.2); Lymphocytes Percent Auto 17.2 % (18.3-44.2); Mean Corpuscular HGB Conc 32.5 g/dl (32-36); Mean Corpuscular Volume 89.2 fl (80-100); Mean Platelet Volume 10.5 fl (7.4-10.4); Monocytes Absolute Auto 0.5 K/mm3 (0.1-0.6); Neutrophils Absolute Auto 3.6 K/mm3 (1.3-6.7); Neutrophils Percent Auto 69.3 % (45.5-73.1); Platelet Count Result 167 k/mm3 (150-375); Red Blood Count 4.17 M/mm3 (4.6-6.20); Red Cell Distribution Width 16.3 % (11.5-14.5); White Blood Count 5.2 K/mm3 (4.5-10.0)
[2020-07-22 13:26] LABS: Anion Gap 7 mmol/L (8-16); Blood Urea Nitrogen 24 mg/dL (9-20); Carbon Dioxide 27 mmol/L (22-30); Chloride 106 mmol/L (98-107); Estimated CRCL calculation 51 ml/min; Estimated Glomerular Filt Rate 52; Glucose 99 mg/dL (75-110); Potassium 4.2 mmol/L (3.4-5.0); Sodium 140 mmol/L (137-145)
[2020-07-22 13:30] VITALS: BP 144/78; PULSE 59; RESP 14; O2SAT 95
--- NOTE | 2020-07-22 13:38 | ED.GENADULT ---
HPI - General Adult General Chief complaint: Shortness of Breath/Dyspnea Stated complaint: sob Time Seen by Provider: 07/22/20 12:49 Source: patient History of Present Illness HPI narrative: Patient is a 84 y/o male complaining of mild SOB for last 2 days. He states that exertion aggravated his SOB. He has no fever, chills, cough or chest pain. He was recently started on Eliquis for DVT. Related Data Home Medications Medication Instructions Recorded Confirmed finasteride 5 mg PO DAILY 06/22/19 06/29/20 tamsulosin 0.4 mg PO DAILY 06/22/19 06/29/20 Adults Multivitamin 1 tablet PO DAILY 03/19/20 06/29/20 Glucosamine Msm 1 cap PO DAILY 03/19/20 06/29/20 Refresh See Rx Instructions .ROUTE 03/19/20 06/29/20 .COMPLEX PRN Colace 100 mg PO BID 06/29/20 06/29/20 calcium polycarbophil 625 mg PO DAILY 06/29/20 06/29/20 cholecalciferol (vitamin D3) 2,000 units PO DAILY 06/29/20 06/29/20 Allergies Allergy/AdvReac Type Severity Reaction Status Date / Time Aminoglycosides Allergy Unknown Unknown Verified 07/22/20 13:02 Macrolide Antibiotics Allergy Unknown Unknown Verified 07/22/20 13:02 Sulfa (Sulfonamide Allergy Unknown Unknown Verified 07/22/20 13:02 Antibiotics) ibuprofen AdvReac Gastrointestinal Verified 07/22/20 13:02 Upset Review of Systems Constitutional: Constitutional: Denies chills, Denies fever(s), Denies headache(s) and Denies weakness Eyes: Eyes: Denies blurry vision ENT: Denies headache(s) and Denies neck pain Cardiovascular: Cardiovascular: Denies chest pain and Reports dyspnea Respiratory: Respiratory: Denies cough and Reports dyspnea Gastrointestinal: Gastrointestinal: Denies abdominal pain, Denies diarrhea, Denies nausea and Denies vomiting Genitourinary: Genitourinary: Denies hematuria and Denies dysuria Musculoskeletal: Musculoskeletal: Denies back pain and Denies neck pain Neurologic: Denies headache(s) and Denies weakness PMFSH Past Medical History Medical History BPH (benign prostatic hyperplasia) Hernia Lymphedema Presence of IVC filter Surgical History Surgical History H/O hernia repair History of cataract surgery History of hip surgery Family History Family History Mother Cerebrovascular accident Father Acute myocardial infarction Social History Social History Social History: Patient drinks a couple beers 3-4 nights a week. He does not have any history of alcohol withdrawal. He quit smoking 40 years ago. He does not do drugs. He would like to be full code and if he were to come to a ventilator, he would not like to be on it very long. He says his children can make the decisions after Smoking packs per day: 2 Smoking cigarettes per day: 40.0 Years smoked: 20 Smoking pack-years: 40.00 Smoking status: Former smoker Tobacco type: cigarettes Alcohol intake: current Drinks per week: 10 Substance use: never Gender identity (if verbalized by the patient): Male Spiritual care concerns: No Exam Const: General: no acute distress and well developed Orientation/consciousness: oriented to person, oriented to place, oriented to time and patient oriented x3 HENMT: Head: normocephalic Ears: external ears normal General nose exam: Normal external nose present Eyes: General: appearance normal, both eyes and all related structures Conjunctivae: conjunctivae normal Neck: Neck: normal visual inspection and full ROM Chest: Chest palpation & inspection: normal inspection of the chest and no tenderness Resp: Effort & Inspection: normal respiratory effort Auscultation: clear to auscultation bilaterally Cardio: Rate: regular rate Rhythm: regular rhythm GI: GI Palp: No abdominal tenderness and Yes Soft to palpation Skin: General skin exam: n
--- NOTE | 2020-07-22 13:43 | PC.NURSE ---
Called lab to add on d dimer and bnp
[2020-07-22 14:06] LABS: NT Pro B Type Natriuretic Pept 190 PG/ML (5-100)
[2020-07-22 14:29] LABS: D Dimer 0.27 ug/mL (<0.48)
[2020-07-22 14:51] VITALS: BP 149/75; PULSE 68; RESP 13; O2SAT 98
[2020-07-22 15:02] VITALS: BP 108/80
[2020-07-22 16:05] VITALS: BP 156/95; PULSE 69; RESP 12; O2SAT 97
== END 2020-07-22 16:05 | disposition home or self-care (01) ==
PROVIDERS: Emergency Provider Emergency Medicine
DX: R06.02 Shortness of breath (principal); N40.0 Benign prostatic hyperplasia without lower urinary tract symptoms; Z98.49 Cataract extraction status, unspecified eye; Z87.891 Personal history of nicotine dependence; I44.0 Atrioventricular block, first degree; I45.10 Unspecified right bundle-branch block; I49.3 Ventricular premature depolarization
CPT/HCPCS: 36415; 71046; 71275; 80048; 83880; 85025; 85380; 93005; 99284; Q9967

== ENCOUNTER 2020-07-23 18:23 | Emergency (ER) | payer MEDICARE, OTHER, SELFPAY ==
[2020-07-23] VITALS (20 sets, daily range): BP systolic 125–154; BP diastolic 71–105; PULSE 59–69; RESP 9–20; TEMP 36.4; O2SAT 94–98
--- NOTE | ~2020-07-23 | XR_ITS ---
EXAMINATION: XR chest 1V portable EXAM DATE: 07/23/2020 18:56 INDICATION: Shortness of breath, dizziness. TECHNIQUE: Portable AP frontal chest x-ray was obtained. Comparison is made to prior examination from 07/22/2020. Correlation also made to CT coronary scan from 07/22. FINDINGS: The rounded right infrahilar paraspinal density is patient's pulmonary vein. The lungs are clear. There are no pleural effusions. The cardiomediastinal silhouette is within normal limits. T here is no pneumothorax suspected. The bones and soft tissues are unremarkable. IMPRESSION: No acute cardiopulmonary findings. Reviewed, dictated and finalized at location A. TROENCEPHALOGRAPH TECHNICIAN
--- NOTE | 2020-07-23 18:32 | ECG_ITS ---
Measurements Intervals [place] Rate: 66 P: -1 DE: 188 QRS: 4 QRSD: 115 T: 43 QT: 405 QTc: 425 Interpretive Statements SINUS RHYTHM VENTRICULAR PREMATURE COMPLEX EARLY PRECORDIAL R/S TRANSITION MINIMAL Q WAVES- ANT/HIGH LAT LEADS BASELINE ARTIFACT- I, II, III, AVR, AVL, AVF, V4-V6 BORDERLINE ECG Electronically Signed On 07-23-2020 19:49:09 LABEL PINKER by Renny Gamble D.O.
[2020-07-23 19:50] LABS: Basophils Percent Auto 0.4 % (0.2-1.2); Eosinophils Absolute Auto 0.1 K/mm3 (0-0.3); Eosinophils Percent Auto 1.3 % (0-4.4); Hematocrit 34.4 % (42.0-52.0); Hemoglobin 11.5 g/dL (14.0-18.0); Immature Granulocyte Absolute 0.04 K/mm3 (0.00-0.031); Immature Granulocyte Percent A 0.5 % (0-0.5); Lymphocytes Absolute Auto 0.81 K/mm3 (0.9-3.2); Lymphocytes Percent Auto 10.9 % (18.3-44.2); Mean Corpuscular HGB Conc 33.4 g/dl (32-36); Mean Corpuscular Hemoglobin 29.6 pg (26-34); Mean Corpuscular Volume 88.4 fl (80-100); Mean Platelet Volume 10.5 fl (7.4-10.4); Monocytes Absolute Auto 0.8 K/mm3 (0.1-0.6); Monocytes Percent Auto 10.2 % (2.6-8.5); Neutrophils Absolute Auto 5.7 K/mm3 (1.3-6.7); Neutrophils Percent Auto 76.7 % (45.5-73.1); Platelet Count Result 166 k/mm3 (150-375); Red Blood Count 3.89 M/mm3 (4.6-6.20); Red Cell Distribution Width 16.2 % (11.5-14.5); White Blood Count 7.4 K/mm3 (4.5-10.0)
[2020-07-23 20:00] LABS: INR 1.1
[2020-07-23 20:01] LABS: Anion Gap 6 mmol/L (8-16); Blood Urea Nitrogen 24 mg/dL (9-20); Calcium 8.8 mg/dL (8.4-10.2); Carbon Dioxide 26 mmol/L (22-30); Chloride 106 mmol/L (98-107); Estimated CRCL calculation 44 ml/min; Estimated Glomerular Filt Rate 44; Glucose 128 mg/dL (75-110); Potassium 4.1 mmol/L (3.4-5.0); Sodium 138 mmol/L (137-145)
[2020-07-23 20:02] LABS: Alanine Aminotransferase 14 U/L (4-50); Albumin Level 3.6 g/dL (3.5-5.1); Alkaline Phosphatase 63 U/L (38-126); Anion Gap 7 mmol/L (8-16); Aspartate Amino Transferase 22 U/L (17-59); Bilirubin,Total 0.4 mg/dL (0.2-1.3); Blood Urea Nitrogen 24 mg/dL (9-20); Calcium 8.8 mg/dL (8.4-10.2); Carbon Dioxide 26 mmol/L (22-30); Chloride 105 mmol/L (98-107); Estimated CRCL calculation 44 ml/min; Estimated Glomerular Filt Rate 44; Glucose 128 mg/dL (75-110); Potassium 4.1 mmol/L (3.4-5.0); Sodium 138 mmol/L (137-145)
[2020-07-23 20:13] LABS: NT Pro B Type Natriuretic Pept 196 PG/ML (5-100); Troponin I < 0.012 ng/mL (0.000-0.034)
[2020-07-23 20:48] LABS: Add Urine Microscopic? NO; Appearance Urine Clear (Clear); Bilirubin Urine Negative (Negative); Blood Urine Negative (Negative); Color Urine Yellow (Yellow); Glucose Urine UA Negative (Negative); Ketones Urine Negative (Negative); Leukocyte Esterase Ur Negative LEU/UL (Negative); Nitrate Urine Negative (Negative); Protein Urine Negative (Negative); Specific Grav Ur 1.014 (1.001-1.035); Urobilinogen Urine Negative mg/dL (<2.0)
--- NOTE | 2020-07-23 21:18 | ED.GENADULT ---
HPI - General Adult General Chief complaint: Shortness of Breath/Dyspnea Stated complaint: Dizzy, SOB Time Seen by Provider: 07/23/20 18:25 Source: patient Mode of arrival: EMS Limitations: no limitations History of Present Illness HPI narrative: 84-year-old with a history of BPH, GERD, DVT on Eliquis here with complaints of dizziness and shortness of breath, patient states that he just ate his dinner probably eating too much which made him dizzy. He states that he had 2 servings of hamburger helper. He denied any chest pain, nausea or vomiting. States he is feeling much better at this time. Patient states that he has been having these symptoms on and off however today his symptoms were intense so she called 911. Patient denies any blood in the stool or black-colored stool with Onset (ago): minute(s) (30) Related Data Home Medications Medication Instructions Recorded Confirmed finasteride 5 mg PO DAILY 06/22/19 06/29/20 tamsulosin 0.4 mg PO DAILY 06/22/19 06/29/20 Adults Multivitamin 1 tablet PO DAILY 03/19/20 06/29/20 Glucosamine Msm 1 cap PO DAILY 03/19/20 06/29/20 Refresh See Rx Instructions .ROUTE 03/19/20 06/29/20 .COMPLEX PRN Colace 100 mg PO BID 06/29/20 06/29/20 calcium polycarbophil 625 mg PO DAILY 06/29/20 06/29/20 cholecalciferol (vitamin D3) 2,000 units PO DAILY 06/29/20 06/29/20 Allergies Allergy/AdvReac Type Severity Reaction Status Date / Time Aminoglycosides Allergy Unknown Unknown Verified 07/23/20 18:33 Macrolide Antibiotics Allergy Unknown Unknown Verified 07/23/20 18:33 Sulfa (Sulfonamide Allergy Unknown Unknown Verified 07/23/20 18:33 Antibiotics) ibuprofen AdvReac Gastrointestinal Verified 07/23/20 18:33 Upset Review of Systems Review of Systems: All systems reviewed & are unremarkable except as noted in HPI and below Constitutional: Constitutional: Reports no additional constitutional complaints Eyes: Eyes: Reports no additional eye complaints ENT: Reports system reviewed and no additional complaints, except as documented Cardiovascular: Cardiovascular: Reports no additional cardiovascular complaints Respiratory: Respiratory: Reports no additional respiratory complaints Gastrointestinal: Gastrointestinal: Reports no additional gastrointestinal complaints Musculoskeletal: Musculoskeletal: Reports no additional musculoskeletal complaints Integumentary/Breasts: Skin/Breast: Reports system reviewed and no additional complaints, except as docu PMFSH Past Medical History Medical History BPH (benign prostatic hyperplasia) Hernia Lymphedema Presence of IVC filter Surgical History Surgical History H/O hernia repair History of cataract surgery History of hip surgery Family History Family History Mother Cerebrovascular accident Father Acute myocardial infarction Social History Social History Social History: Patient drinks a couple beers 3-4 nights a week. He does not have any history of alcohol withdrawal. He quit smoking 40 years ago. He does not do drugs. He would like to be full code and if he were to come to a ventilator, he would not like to be on it very long. He says his children can make the decisions after Smoking packs per day: 2 Smoking cigarettes per day: 40.0 Years smoked: 20 Smoking pack-years: 40.00 Smoking status: Former smoker Tobacco type: cigarettes Alcohol intake: current Drinks per week: 10 Substance use: never Gender identity (if verbalized by the patient): Male Spiritual care concerns: No Exam Narrative: Exam Narrative: GENERAL: Well-appearing, well-nourished, and in no acute distress. HEAD: Normocephalic, atraumatic. EYES: PERRLA and EOMI.. NECK: Supple. CHEST: Clear to auscultation. No respiratory
== END 2020-07-23 21:40 | disposition home or self-care (01) ==
PROVIDERS: Emergency Provider Family Medicine
DX: R42 Dizziness and giddiness (principal); N40.0 Benign prostatic hyperplasia without lower urinary tract symptoms; Z86.718 Personal history of other venous thrombosis and embolism; K21.9 Gastro-esophageal reflux disease without esophagitis; Z79.01 Long term (current) use of anticoagulants; Z98.49 Cataract extraction status, unspecified eye; Z87.891 Personal history of nicotine dependence; I49.3 Ventricular premature depolarization; R94.31 Abnormal electrocardiogram [ECG] [EKG]
CPT/HCPCS: 36415; 71045; 80048; 80053; 81003; 83880; 84484; 85025; 85610; 93005; 99284

== ENCOUNTER 2020-07-28 14:38 | Emergency (ER) | payer MEDICARE, OTHER, SELFPAY ==
[2020-07-28 14:47] VITALS: BP 163/95; PULSE 74; RESP 20; TEMP 36.3; O2SAT 100
--- NOTE | 2020-07-28 15:18 | ED.GENADULT ---
HPI - General Adult General Chief complaint: Recheck/Abnormal Lab/Rx Stated complaint: Perscription Refill Time Seen by Provider: 07/28/20 15:03 Source: RN notes reviewed History of Present Illness HPI narrative: Patient presents to emergency department from home for medication refill patient was seen in the emergency department approximately a month ago and found to have a DVT at that time he was started on Eliquis starter pack he has 2 days left of the Eliquis starter pack patient is followed at the [facility] but does not have an appointment until next and will be out of his medication before then he is requesting a refill of his Eliquis he denies any fevers or chills chest pain abdominal pain nausea vomiting or any other symptoms he states he does have intermittent shortness of breath which has been worked up in our emergency department over the past month with negative work-ups he denies any current shortness of breath Related Data Home Medications Medication Instructions Recorded Confirmed finasteride 5 mg PO DAILY 06/22/19 06/29/20 tamsulosin 0.4 mg PO DAILY 06/22/19 06/29/20 Adults Multivitamin 1 tablet PO DAILY 03/19/20 06/29/20 Glucosamine Msm 1 cap PO DAILY 03/19/20 06/29/20 Refresh See Rx Instructions .ROUTE 03/19/20 06/29/20 .COMPLEX PRN Colace 100 mg PO BID 06/29/20 06/29/20 calcium polycarbophil 625 mg PO DAILY 06/29/20 06/29/20 cholecalciferol (vitamin D3) 2,000 units PO DAILY 06/29/20 06/29/20 Allergies Allergy/AdvReac Type Severity Reaction Status Date / Time Aminoglycosides Allergy Unknown Unknown Verified 07/28/20 15:03 Macrolide Antibiotics Allergy Unknown Unknown Verified 07/28/20 15:03 Sulfa (Sulfonamide Allergy Unknown Unknown Verified 07/28/20 15:03 Antibiotics) ibuprofen AdvReac Gastrointestinal Verified 07/28/20 15:03 Upset Review of Systems Review of Systems: Narrative: Gen.: Denies fevers or chills ENT: Denies congestion Respiratory: Denies shortness of breath or cough CV: Denies chest pain or palpitations GI: Denies abdominal pain nausea, emesis or diarrhea Musculoskeletal: Denies back pain or muscle pain Neuro: Denies numbness, tingling, weakness or focal weakness Skin: Denies rash Except as documented, all other systems reviewed and negative [facility] Past Medical History Medical History BPH (benign prostatic hyperplasia) Hernia Lymphedema Presence of IVC filter Surgical History Surgical History H/O hernia repair History of cataract surgery History of hip surgery Family History Family History Mother Cerebrovascular accident Father Acute myocardial infarction Social History Social History Social History: Patient drinks a couple beers 3-4 nights a week. He does not have any history of alcohol withdrawal. He quit smoking 40 years ago. He does not do drugs. He would like to be full code and if he were to come to a ventilator, he would not like to be on it very long. He says his children can make the decisions after Smoking packs per day: 2 Smoking cigarettes per day: 40.0 Years smoked: 20 Smoking pack-years: 40.00 Smoking status: Former smoker Tobacco type: cigarettes Alcohol intake: current Drinks per week: 10 Substance use: never Gender identity (if verbalized by the patient): Male Spiritual care concerns: No Exam Narrative: Exam Narrative: APPEARANCE: No acute distress, nontoxic, resting in bed EYES: EOMI HEENT: Normocephalic, atraumatic, OMM RESPIRATORY: No respiratory distress Clear to auscultation bilaterally with no rhonchi wheezing or rales. CARDIOVASCULAR: Regular rate and rhythm without murmurs rubs or gallops. ABDOMINAL: Soft, nontender, nondistended, no rebound or guarding MUSCULOSKELETAl: Moves all extremities
== END 2020-07-28 15:48 | disposition home or self-care (01) ==
PROVIDERS: Emergency Provider Emergency Medicine
DX: I82.402 Acute embolism and thrombosis of unspecified deep veins of left lower extremity (principal); N40.0 Benign prostatic hyperplasia without lower urinary tract symptoms; Z98.49 Cataract extraction status, unspecified eye; Z87.891 Personal history of nicotine dependence
CPT/HCPCS: 99281

== ENCOUNTER 2020-11-17 14:20 | Emergency (ER) | payer MEDICARE, OTHER, SELFPAY ==
--- NOTE | ~2020-11-17 | US_ITS ---
EXAMINATION: US venous doppler [facility] EXAM DATE: 11/17/2020 15:04 INDICATION: Left leg pain. TECHNIQUE: Multiple grayscale, color flow and Doppler images of the left lower extremity deep venous system were obtained and reviewed. There is no prior study for comparison. FINDINGS: The left common femoral, femoral and profunda veins demonstrate normal color flow, respirat ory variation, augmentation and compressibility. Compressibility, color flow confirmed within the le ft popliteal, posterior tibial, peroneal veins. IMPRESSION: 1. No left lower extremity deep venous thrombosis. Reviewed, dictated and finalized at location B.
[2020-11-17 14:24] VITALS: BP 117/91; PULSE 83; RESP 18; TEMP 37.1; O2SAT 99
--- NOTE | 2020-11-17 14:41 | PC.NURSE ---
pt to ultrasound at this time
--- NOTE | 2020-11-17 14:43 | ED.GENADULT ---
HPI - General Adult General Chief complaint: Extremity Problem,Nontraumatic Stated complaint: L LEG PAIN X2D Time Seen by Provider: 11/17/20 14:26 Source: patient History of Present Illness HPI narrative: Patient is a 84 y/o male complaining of left lower leg pain starting yesterday. He describes his pain as aching and rates it as 2-3/10. There is no alleviating or exacerbating factor. He is able to ambulate. He has some left lower leg redness. He has no fever, chills, chest pain or SOB. Related Data Home Medications Medication Instructions Recorded Confirmed finasteride 5 mg PO DAILY 06/22/19 06/29/20 tamsulosin 0.4 mg PO DAILY 06/22/19 06/29/20 Adults Multivitamin 1 tablet PO DAILY 03/19/20 06/29/20 Glucosamine Msm 1 cap PO DAILY 03/19/20 06/29/20 Refresh See Rx Instructions .ROUTE 03/19/20 06/29/20 .COMPLEX PRN Colace 100 mg PO BID 06/29/20 06/29/20 calcium polycarbophil 625 mg PO DAILY 06/29/20 06/29/20 cholecalciferol (vitamin D3) 2,000 units PO DAILY 06/29/20 06/29/20 Allergies Allergy/AdvReac Type Severity Reaction Status Date / Time Aminoglycosides Allergy Unknown Unknown Verified 07/28/20 15:03 Macrolide Antibiotics Allergy Unknown Unknown Verified 07/28/20 15:03 Sulfa (Sulfonamide Allergy Unknown Unknown Verified 07/28/20 15:03 Antibiotics) ibuprofen AdvReac Gastrointestinal Verified 07/28/20 15:03 Upset Review of Systems Constitutional: Constitutional: Denies chills, Denies fever(s), Denies headache(s) and Denies weakness Eyes: Eyes: Denies blurry vision ENT: Denies headache(s) and Denies neck pain Cardiovascular: Cardiovascular: Denies chest pain and Denies dyspnea Respiratory: Respiratory: Denies cough and Denies dyspnea Gastrointestinal: Gastrointestinal: Denies abdominal pain, Denies diarrhea, Denies nausea and Denies vomiting Genitourinary: Genitourinary: Denies hematuria and Denies dysuria Musculoskeletal: Musculoskeletal: Denies back pain, Denies neck pain and Reports other (left leg pain) Integumentary/Breasts: Skin/Breast: Reports erythema (left lower leg) Neurologic: Denies headache(s) and Denies weakness PMFSH Past Medical History Medical History BPH (benign prostatic hyperplasia) Hernia Lymphedema Presence of IVC filter Surgical History Surgical History H/O hernia repair History of cataract surgery History of hip surgery Family History Family History Mother Cerebrovascular accident Father Acute myocardial infarction Social History Social History Social History: Patient drinks a couple beers 3-4 nights a week. He does not have any history of alcohol withdrawal. He quit smoking 40 years ago. He does not do drugs. He would like to be full code and if he were to come to a ventilator, he would not like to be on it very long. He says his children can make the decisions after Smoking packs per day: 2 Smoking cigarettes per day: 40.0 Years smoked: 20 Smoking pack-years: 40.00 Smoking status: Former smoker Tobacco type: cigarettes Alcohol intake: current Drinks per week: 10 Substance use: never Gender identity (if verbalized by the patient): Male Spiritual care concerns: No Exam Const: General: no acute distress and well developed Orientation/consciousness: oriented to person, oriented to place, oriented to time and patient oriented x3 HENMT: Head: normocephalic Ears: external ears normal General nose exam: Normal external nose present Eyes: General: appearance normal, both eyes and all related structures Conjunctivae: conjunctivae normal Neck: Neck: normal visual inspection and full ROM Chest: Chest palpation & inspection: normal inspection of the chest and no tenderness Resp: Effort & Inspection: normal respiratory
[2020-11-17 15:44] LABS: Basophils Percent Auto 0.3 % (0.2-1.2); Eosinophils Absolute Auto 0.1 K/mm3 (0-0.3); Eosinophils Percent Auto 0.9 % (0-4.4); Hematocrit 37.2 % (42.0-52.0); Hemoglobin 12.3 g/dL (14.0-18.0); Immature Granulocyte Absolute 0.02 K/mm3 (0.00-0.031); Immature Granulocyte Percent A 0.3 % (0-0.5); Lymphocytes Absolute Auto 0.83 K/mm3 (0.9-3.2); Lymphocytes Percent Auto 12.5 % (18.3-44.2); Mean Corpuscular HGB Conc 33.1 g/dl (32-36); Mean Corpuscular Hemoglobin 29.2 pg (26-34); Mean Corpuscular Volume 88.4 fl (80-100); Mean Platelet Volume 10.1 fl (7.4-10.4); Monocytes Absolute Auto 1.3 K/mm3 (0.1-0.6); Monocytes Percent Auto 18.9 % (2.6-8.5); Neutrophils Absolute Auto 4.4 K/mm3 (1.3-6.7); Neutrophils Percent Auto 67.1 % (45.5-73.1); Platelet Count Result 165 k/mm3 (150-375); Red Blood Count 4.21 M/mm3 (4.6-6.20); White Blood Count 6.6 K/mm3 (4.5-10.0)
[2020-11-17 15:54] LABS: Anion Gap 13 mmol/L (8-16); Blood Urea Nitrogen 24 mg/dL (9-20); Calcium 9.2 mg/dL (8.4-10.2); Carbon Dioxide 21 mmol/L (22-30); Chloride 104 mmol/L (98-107); Estimated CRCL calculation 45 ml/min; Estimated Glomerular Filt Rate 44; Glucose 174 mg/dL (75-110); Potassium 3.7 mmol/L (3.4-5.0); Sodium 138 mmol/L (137-145)
[2020-11-17 15:56] LABS: INR 1.1; Prothrombin Time 14.9 Seconds (11.1-14.7)
[2020-11-17 15:57] LABS: Partial Thromboplastin Time 38.4 SECONDS (22.3-36.8)
[2020-11-17 18:42] VITALS: BP 154/81; PULSE 64; RESP 18; O2SAT 100
== END 2020-11-17 18:55 | disposition home or self-care (01) ==
PROVIDERS: Emergency Provider Emergency Medicine
DX: L03.116 Cellulitis of left lower limb (principal); N40.0 Benign prostatic hyperplasia without lower urinary tract symptoms
CPT/HCPCS: 36415; 80048; 85025; 85610; 85730; 93971; 99284

== ENCOUNTER 2021-01-07 19:27 | Emergency (ER) | payer MEDICARE, OTHER, SELFPAY ==
[2021-01-07 19:39] VITALS: BP 154/70; PULSE 78; RESP 18; TEMP 37.7; O2SAT 98
[2021-01-07 20:06] LABS: Basophils Percent Auto 0.4 % (0.2-1.2); Eosinophils Absolute Auto 0.1 K/mm3 (0-0.3); Eosinophils Percent Auto 0.9 % (0-4.4); Immature Granulocyte Absolute 0.05 K/mm3 (0.00-0.031); Immature Granulocyte Percent A 0.6 % (0-0.5); Lymphocytes Absolute Auto 0.87 K/mm3 (0.9-3.2); Lymphocytes Percent Auto 10.3 % (18.3-44.2); Mean Corpuscular HGB Conc 33.3 g/dl (32-36); Mean Corpuscular Hemoglobin 29.3 pg (26-34); Mean Platelet Volume 10.3 fl (7.4-10.4); Monocytes Absolute Auto 1.6 K/mm3 (0.1-0.6); Monocytes Percent Auto 18.8 % (2.6-8.5); Neutrophils Absolute Auto 5.9 K/mm3 (1.3-6.7); Platelet Count Result 169 k/mm3 (150-375); Red Blood Count 4.09 M/mm3 (4.6-6.20); Red Cell Distribution Width 15.9 % (11.5-14.5); White Blood Count 8.5 K/mm3 (4.5-10.0)
[2021-01-07 20:15] LABS: Lactic Acid Reflex 0.6 mmol/L (0.7-2.1)
[2021-01-07 20:18] LABS: Alanine Aminotransferase 12 U/L (4-50); Albumin Level 4.2 g/dL (3.5-5.1); Alkaline Phosphatase 85 U/L (38-126); Anion Gap 5 mmol/L (8-16); Aspartate Amino Transferase 20 U/L (17-59); Bilirubin,Total 0.6 mg/dL (0.2-1.3); Blood Urea Nitrogen 25 mg/dL (9-20); Carbon Dioxide 26 mmol/L (22-30); Chloride 105 mmol/L (98-107); Estimated CRCL calculation 41 ml/min; Estimated Glomerular Filt Rate 41; Glucose 105 mg/dL (65-110); Potassium 4.1 mmol/L (3.4-5.0); Sodium 136 mmol/L (137-145)
--- NOTE | 2021-01-07 21:26 | ED.GENADULT ---
HPI - General Adult General Chief complaint: Extremity Problem,Nontraumatic Stated complaint: my leg infection is back Time Seen by Provider: 01/07/21 21:13 History of Present Illness HPI narrative: Patient is a 85-year-old gentleman who presents the emergency department with chief complaint of redness of left lower extremity. The patient reports that he has had cellulitis and also has had a DVT before in the past patient states that he is currently not on blood thinners due to GI bleeding. Patient states that he noticed today that he started having some redness below the knee on the left lower extremity reports that it is a little uncomfortable. Patient states it feels very similar to whenever he had cellulitis about 2 months ago. Patient denies fever denies chills denies shortness of breath or chest pain. Related Data Home Medications Medication Instructions Recorded Confirmed finasteride 5 mg PO DAILY 06/22/19 06/29/20 tamsulosin 0.4 mg PO DAILY 06/22/19 06/29/20 Adults Multivitamin 1 tablet PO DAILY 03/19/20 06/29/20 Glucosamine Msm 1 cap PO DAILY 03/19/20 06/29/20 Refresh See Rx Instructions .ROUTE 03/19/20 06/29/20 .COMPLEX PRN Colace 100 mg PO BID 06/29/20 06/29/20 calcium polycarbophil 625 mg PO DAILY 06/29/20 06/29/20 cholecalciferol (vitamin D3) 2,000 units PO DAILY 06/29/20 06/29/20 Allergies Allergy/AdvReac Type Severity Reaction Status Date / Time Aminoglycosides Allergy Unknown Unknown Verified 07/28/20 15:03 Macrolide Antibiotics Allergy Unknown Unknown Verified 07/28/20 15:03 Sulfa (Sulfonamide Allergy Unknown Unknown Verified 07/28/20 15:03 Antibiotics) ibuprofen AdvReac Gastrointestinal Verified 07/28/20 15:03 Upset Review of Systems Review of Systems: A 10 system review of systems was completed on the patient and is negative except for what is stated in the HPI. Nursing and ancillary documentation was reviewed. [facility] Past Medical History Medical History BPH (benign prostatic hyperplasia) Hernia Lymphedema Presence of IVC filter Surgical History Surgical History H/O hernia repair History of cataract surgery History of hip surgery Family History Family History Mother Cerebrovascular accident Father Acute myocardial infarction Social History Social History Social History: Patient drinks a couple beers 3-4 nights a week. He does not have any history of alcohol withdrawal. He quit smoking 40 years ago. He does not do drugs. He would like to be full code and if he were to come to a ventilator, he would not like to be on it very long. He says his children can make the decisions after Smoking packs per day: 2 Smoking cigarettes per day: 40.0 Years smoked: 20 Smoking pack-years: 40.00 Smoking status: Former smoker Tobacco type: cigarettes Alcohol intake: current Drinks per week: 10 Substance use: never Gender identity (if verbalized by the patient): Male Spiritual care concerns: No Exam Narrative: GENERAL: Well-appearing, well-nourished, and in no acute distress. HEAD: Normocephalic, atraumatic. EYES: PERRLA and EOMI. ENT: Nares clear, no rhinorrhea or epistaxis. Mucous membranes moist. NECK: Supple. CHEST: Clear to auscultation. No respiratory distress. HEART: Regular rate and rhythm. No murmur heard. Normal peripheral pulses. ABDOMEN: Soft, nontender, nondistended, normal active bowel sounds. EXTREMITIES: Normal range of motion. No edema. Slight redness on the left lower extremity below the knee. There is no calf tenderness. SKIN: Warm, dry, no rash. NEURO: No focal deficits. Alert and oriented x3. PSYCH: Normal mood and affect. Course Course Emergency Course: The patient will be scheduled
== END 2021-01-07 21:49 | disposition home or self-care (01) ==
PROVIDERS: Family Medicine; Emergency Provider Emergency Medicine
DX: L03.116 Cellulitis of left lower limb (principal)
CPT/HCPCS: 36415; 80053; 83605; 85025; 87040; 99283

== ENCOUNTER 2021-01-08 08:07 | Outpatient (CLI) | payer MEDICARE, SELFPAY ==
--- NOTE | ~2021-01-08 | US_ITS ---
EXAMINATION: US venous doppler [facility] DATE: 01/08/2021 08:50 INDICATION: Left lower limb pain TECHNIQUE: Nevarez scale images without and with compression and Doppler images of the left lower extrem ity veins were obtained. COMPARISON: 11/17/2020 FINDINGS: The left common femoral vein, profunda femoral vein, femoral vein, popliteal vein, peroneal trunk, posterior tibial veins, and greater saphenous vein are patent. IMPRESSION: 1. Patent left lower extremity veins. No evidence of deep venous thrombosis. Reviewed, dictated and finalized at location A.
== END 2021-01-08 08:08 | disposition home or self-care (01) ==
DX: M79.662 Pain in left lower leg (principal); M79.89 Other specified soft tissue disorders
CPT/HCPCS: 93971

== ENCOUNTER 2021-01-22 14:31 | Emergency (ER) | payer MEDICARE, SELFPAY ==
--- NOTE | ~2021-01-22 | XR_ITS ---
XR tibia fibula LT 2V DATE: 01/22/2021 18:58 INDICATION: Redness and swelling. History of cellulitis. No injury. TECHNIQUE: AP and lateral views COMPARISON: 01/07/2021 venous duplex examination of left leg FINDINGS: There is diffuse osteopenia. No fracture or dislocation, periosteal reaction or bone destru ction. Arterial calcification. Soft tissue swelling, including anterior mid lower leg soft tissue swelling. Mild plantar calcaneal enthesopathy. Pes planus.. IMPRESSION: Soft tissue swelling Osteopenia Mild plantar calcaneal enthesopathy Pes planus Reviewed, dictated and finalized at location A.
[2021-01-22 14:35] VITALS: BP 156/96; PULSE 84; RESP 18; TEMP 36.8; O2SAT 96
[2021-01-22 16:54] VITALS: BP 141/80; PULSE 73; RESP 14; TEMP 36.9; O2SAT 98
--- NOTE | 2021-01-22 19:11 | ED.SKABFB ---
HPI - Skin/Abscess/Foreign Bdy General Chief complaint: Skin/Abscess/Foreign Body Stated complaint: left leg cellulitis Time Seen by Provider: 01/22/21 18:21 Source: patient and RN notes reviewed Mode of arrival: ambulatory Limitations: no limitations History of Present Illness HPI narrative: This is an 85 year old male with history of chronic lymphedema who presents for evaluation of redness to his left lower leg. He states he was evaluated 2 weeks ago for left leg redness, and he was discharged on doxycycline for cellulitis. He took the antibiotics for 1 week and he states his redness resolved. HE noticed redness again yesterday and he has mild lower leg discomfort. He denies nausea, vomiting , fever or weakness. He reports he has been told to wear compression stocks to his legs but he does not wear them. Related Data Home Medications Medication Instructions Recorded Confirmed finasteride 5 mg PO DAILY 06/22/19 06/29/20 tamsulosin 0.4 mg PO DAILY 06/22/19 06/29/20 Adults Multivitamin 1 tablet PO DAILY 03/19/20 06/29/20 Glucosamine Msm 1 cap PO DAILY 03/19/20 06/29/20 Refresh See Rx Instructions .ROUTE 03/19/20 06/29/20 .COMPLEX PRN Colace 100 mg PO BID 06/29/20 06/29/20 calcium polycarbophil 625 mg PO DAILY 06/29/20 06/29/20 cholecalciferol (vitamin D3) 2,000 units PO DAILY 06/29/20 06/29/20 Allergies Allergy/AdvReac Type Severity Reaction Status Date / Time Aminoglycosides Allergy Unknown Unknown Verified 07/28/20 15:03 Macrolide Antibiotics Allergy Unknown Unknown Verified 07/28/20 15:03 Sulfa (Sulfonamide Allergy Unknown Unknown Verified 07/28/20 15:03 Antibiotics) ibuprofen AdvReac Gastrointestinal Verified 07/28/20 15:03 Upset Review of Systems Review of Systems: All systems reviewed & are unremarkable except as noted in HPI and below PMFSH Past Medical History Medical History BPH (benign prostatic hyperplasia) Hernia Lymphedema Presence of IVC filter Surgical History Surgical History H/O hernia repair History of cataract surgery History of hip surgery Family History Family History Mother Cerebrovascular accident Father Acute myocardial infarction Social History Social History Social History: Patient drinks a couple beers 3-4 nights a week. He does not have any history of alcohol withdrawal. He quit smoking 40 years ago. He does not do drugs. He would like to be full code and if he were to come to a ventilator, he would not like to be on it very long. He says his children can make the decisions after Smoking packs per day: 2 Smoking cigarettes per day: 40.0 Years smoked: 20 Smoking pack-years: 40.00 Smoking status: Former smoker Tobacco type: cigarettes Alcohol intake: current Drinks per week: 10 Substance use: never Gender identity (if verbalized by the patient): Male Spiritual care concerns: No Exam Const: General: no acute distress and alert Nutritional Appearance: obese Orientation/consciousness: patient oriented x3 Eyes: EOM: EOMs intact bilaterally Resp: Effort & Inspection: normal respiratory effort Skin: Other: left lower leg from above ankle to below knee anterior with mild erythema, no induration. Neuro: General: patient oriented x3 and moves all extremities Extrem: General: edema bilateral (left leg worse than right) Psych: Mental Status: mental status grossly normal Affect: normal affect Course Reevaluation(s) Reevaluation #1: I discussed with patient he has mild redness. I will start antibiotics. I explained that he will need to wrap and his leg and decrease swelling or his redness will return. Labs are stable Date: 01/22/21 Time: 20:47 Vital Signs Vital signs: Vital Signs Te
[2021-01-22 19:30] VITALS: BP 125/78; PULSE 76; RESP 18; O2SAT 97
[2021-01-22 19:33] LABS: Basophils Percent Auto 0.3 % (0.2-1.2); Eosinophils Absolute Auto 0.1 K/mm3 (0-0.3); Eosinophils Percent Auto 0.6 % (0-4.4); Hematocrit 35.6 % (42.0-52.0); Hemoglobin 11.7 g/dL (14.0-18.0); Immature Granulocyte Absolute 0.05 K/mm3 (0.00-0.031); Immature Granulocyte Percent A 0.6 % (0-0.5); Lymphocytes Absolute Auto 0.92 K/mm3 (0.9-3.2); Lymphocytes Percent Auto 11.7 % (18.3-44.2); Mean Corpuscular HGB Conc 32.9 g/dl (32-36); Mean Corpuscular Hemoglobin 28.9 pg (26-34); Mean Corpuscular Volume 87.9 fl (80-100); Mean Platelet Volume 10.4 fl (7.4-10.4); Monocytes Absolute Auto 1.6 K/mm3 (0.1-0.6); Monocytes Percent Auto 19.8 % (2.6-8.5); Neutrophils Absolute Auto 5.3 K/mm3 (1.3-6.7); Platelet Count Result 168 k/mm3 (150-375); Red Blood Count 4.05 M/mm3 (4.6-6.20); White Blood Count 7.9 K/mm3 (4.5-10.0)
[2021-01-22 19:57] LABS: Alanine Aminotransferase 12 U/L (4-50); Alkaline Phosphatase 74 U/L (38-126); Anion Gap 7 mmol/L (8-16); Aspartate Amino Transferase 20 U/L (17-59); Bilirubin,Total 0.6 mg/dL (0.2-1.3); Blood Urea Nitrogen 24 mg/dL (9-20); CRP 6.9 mg/dL (<1.0); Carbon Dioxide 25 mmol/L (22-30); Chloride 103 mmol/L (98-107); Estimated CRCL calculation 44 ml/min; Estimated Glomerular Filt Rate 44; Glucose 116 mg/dL (65-110); Potassium 3.9 mmol/L (3.4-5.0); Sodium 135 mmol/L (137-145)
[2021-01-22] MEDS: CEFUROXIME AXETIL 250 MG TABLET 500 MG PO (21:22)
[2021-01-22 21:23] VITALS: BP 143/85; PULSE 74; RESP 16; O2SAT 98
== END 2021-01-22 21:25 | disposition home or self-care (01) ==
PROVIDERS: Emergency Provider General Practice
DX: L03.116 Cellulitis of left lower limb (principal); I89.0 Lymphedema, not elsewhere classified; N40.0 Benign prostatic hyperplasia without lower urinary tract symptoms; Z98.49 Cataract extraction status, unspecified eye; Z87.891 Personal history of nicotine dependence; M85.862 Other specified disorders of bone density and structure, left lower leg; M21.42 Flat foot [pes planus] (acquired), left foot; M77.9 Enthesopathy, unspecified
CPT/HCPCS: 36415; 73590; 80053; 85025; 86140; 99283; A9270

== ENCOUNTER 2021-07-08 12:20 | Emergency (ER) | payer MEDICARE, SELFPAY ==
[2021-07-08 12:23] VITALS: BP 162/84; PULSE 78; RESP 16; TEMP 36.6; O2SAT 98
--- NOTE | 2021-07-08 13:21 | ED.GENADULT ---
HPI - General Adult General Chief complaint: Skin/Abscess/Foreign Body Stated complaint: LL leg cellulitis Time Seen by Provider: 07/08/21 12:46 Source: patient Mode of arrival: ambulatory Limitations: no limitations History of Present Illness HPI narrative: Patient is an 85-year-old male with history of lymphedema in the left leg returning with chief complaint of a small reddened area to the lateral aspect of his left lower leg. Patient reports that he has had cellulitis in the past so he wanted to make sure that he had it treated early before things worsen. He denies any weeping from his skin. He reports that he had cellulitis in this leg previously and it was clear after 10-day course of antibiotics. Patient reports allergy to sulfa. he denies any fever, chills, nausea, vomiting. Related Data Home Medications Medication Instructions Recorded Confirmed finasteride 5 mg PO DAILY 06/22/19 06/29/20 tamsulosin 0.4 mg PO DAILY 06/22/19 06/29/20 Adults Multivitamin 1 tablet PO DAILY 03/19/20 06/29/20 Glucosamine Msm 1 cap PO DAILY 03/19/20 06/29/20 Refresh See Rx Instructions .ROUTE 03/19/20 06/29/20 .COMPLEX PRN Colace 100 mg PO BID 06/29/20 06/29/20 calcium polycarbophil 625 mg PO DAILY 06/29/20 06/29/20 cholecalciferol (vitamin D3) 2,000 units PO DAILY 06/29/20 06/29/20 Allergies Allergy/AdvReac Type Severity Reaction Status Date / Time Aminoglycosides Allergy Unknown Unknown Verified 07/08/21 12:26 Macrolide Antibiotics Allergy Unknown Unknown Verified 07/08/21 12:26 Sulfa (Sulfonamide Allergy Unknown Unknown Verified 07/08/21 12:26 Antibiotics) ibuprofen AdvReac Gastrointestinal Verified 07/08/21 12:26 Upset Review of Systems Review of Systems: CONSTITUTIONAL: Denies fever, chills, or sweats. EYES: Denies visual changes, redness, or discharge. ENT: Denies rhinorrhea, congestion, sore throat, or otalgia. CARDIOVASCULAR: Denies chest pain, palpitations, or edema. RESPIRATORY: Denies cough or dyspnea. GASTROINTESTINAL: Denies abdominal pain, nausea, vomiting, or diarrhea. GENITOURINARY: Denies dysuria or hematuria. SKIN: Reports rash denies itching. MUSCULOSKELETAL: Denies back pain, joint pain, or myalgia. NEUROLOGIC: Denies headache, numbness, dizziness, or weakness. PSYCHIATRIC: Denies anxiety or depression. PMFSH Past Medical History Medical History BPH (benign prostatic hyperplasia) Hernia Lymphedema Presence of IVC filter Surgical History Surgical History H/O hernia repair History of cataract surgery History of hip surgery Family History Family History Mother Cerebrovascular accident Father Acute myocardial infarction Social History Social History Social History: Patient drinks a couple beers 3-4 nights a week. He does not have any history of alcohol withdrawal. He quit smoking 40 years ago. He does not do drugs. He would like to be full code and if he were to come to a ventilator, he would not like to be on it very long. He says his children can make the decisions after Smoking packs per day: 2 Smoking cigarettes per day: 40.0 Years smoked: 20 Smoking pack-years: 40.00 Smoking status: Former smoker Tobacco type: cigarettes Alcohol intake: current Drinks per week: 10 Substance use: never Gender identity (if verbalized by the patient): Male Spiritual care concerns: No Exam Narrative: GENERAL: Well-appearing, well-nourished, and in no acute distress. HEAD: Normocephalic, atraumatic. EYES: PERRLA and EOMI. CHEST: Clear to auscultation. No respiratory distress. No wheezes rales or rhonchi HEART: Regular rate and rhythm. EXTREMITIES:Baseline range of motion. SKIN: Skin is dry and flaky. There is small 4-5cm area with mild e
== END 2021-07-08 14:02 | disposition home or self-care (01) ==
PROVIDERS: Emergency Provider Emergency Medicine
DX: L03.116 Cellulitis of left lower limb (principal); N40.0 Benign prostatic hyperplasia without lower urinary tract symptoms
CPT/HCPCS: 99283

== ENCOUNTER 2021-11-23 05:58 | Emergency (ER) | payer MEDICARE, OTHER, SELFPAY ==
[2021-11-23 06:01] VITALS: BP 184/75; PULSE 70; RESP 16; TEMP 36.3; O2SAT 99
--- NOTE | 2021-11-23 06:08 | ED.GENADULT ---
HPI - General Adult General Chief complaint: Unspecified Stated complaint: I had black stool this morning Time Seen by Provider: 11/23/21 06:08 History of Present Illness HPI narrative: 85-year-old male presents emergency room states he woke up this morning went to the bathroom he felt like his stool was blackish in color. He had a history of some gastritis and upper GI bleed in the past he was concerned that maybe he was bleeding again. Last time he had any issues about 2 and half years ago. Had an upper endoscopy performed he states that they never really knew what the source was of any bleeding. He denies any chest pain or shortness of breath. Is not had any blood in his stool. Not had any episodes of vomiting. Denies any significant abdominal pain. Related Data Home Medications Medication Instructions Recorded Confirmed finasteride 5 mg tablet 5 mg PO DAILY 06/22/19 06/29/20 tamsulosin 0.4 mg capsule 0.4 mg PO DAILY 06/22/19 06/29/20 Adults Multivitamin 1 tablet PO DAILY 03/19/20 06/29/20 Glucosamine Msm 1 cap PO DAILY 03/19/20 06/29/20 Refresh See Rx Instructions .Route 03/19/20 06/29/20 .COMPLEX PRN Dry Eyes Colace 100 mg PO BID 06/29/20 06/29/20 calcium polycarbophil 625 mg PO DAILY 06/29/20 06/29/20 cholecalciferol (vitamin D3) 2,000 units PO DAILY 06/29/20 06/29/20 Allergies Allergy/AdvReac Type Severity Reaction Status Date / Time Aminoglycosides Allergy Unknown Unknown Verified 11/23/21 06:03 Macrolide Antibiotics Allergy Unknown Unknown Verified 11/23/21 06:03 Sulfa (Sulfonamide Allergy Unknown Unknown Verified 11/23/21 06:03 Antibiotics) ibuprofen AdvReac Gastrointestinal Verified 11/23/21 06:03 Upset Review of Systems Review of Systems: CONSTITUTIONAL: Denies fever, chills, or sweats. EYES: Denies visual changes, redness, or discharge. ENT: Denies rhinorrhea, congestion, sore throat, or otalgia. CARDIOVASCULAR: Denies chest pain, palpitations, or edema. RESPIRATORY: Denies cough or dyspnea. GASTROINTESTINAL: Denies abdominal pain, nausea, vomiting, or diarrhea. Had what he felt was some blackish stool morning GENITOURINARY: Denies dysuria or hematuria. SKIN: Denies rash or itching. MUSCULOSKELETAL: Denies back pain, joint pain, or myalgia. NEUROLOGIC: Denies headache, numbness, or weakness. PSYCHIATRIC: Denies anxiety or depression. [facility] Past Medical History Medical History BPH (benign prostatic hyperplasia) Hernia Lymphedema Presence of IVC filter Surgical History Surgical History H/O hernia repair History of cataract surgery History of hip surgery Family History Family History Mother Cerebrovascular accident Father Acute myocardial infarction Social History Social History Social History: Patient drinks a couple beers 3-4 nights a week. He does not have any history of alcohol withdrawal. He quit smoking 40 years ago. He does not do drugs. He would like to be full code and if he were to come to a ventilator, he would not like to be on it very long. He says his children can make the decisions after Smoking packs per day: 2 Smoking cigarettes per day: 40.0 Years smoked: 20 Smoking pack-years: 40.00 Smoking status: Former smoker Tobacco type: cigarettes Alcohol intake: current Drinks per week: 10 Substance use: never Gender identity (if verbalized by the patient): Male Spiritual care concerns: No Exam Narrative: APPEARANCE: Well appearing, no pain or distress, well-nourished. Head normocephalic and atraumatic. EYES: PERRLA/EOMI, conjunctivae very clear. NOSE: Normal with no drainage EARS:TMS clear Vipul Nevarez, with good light reflex. THROAT: Pharynx clear, no exudate. NECK: Supple. No adenopathy, no masses. RESPIRATORY: [place]
[2021-11-23 06:22] VITALS: BP 160/80; PULSE 68; RESP 16; O2SAT 95
[2021-11-23 06:32] LABS: Basophils Percent Auto 0.4 % (0.2-1.2); Eosinophils Absolute Auto 0.1 K/mm3 (0-0.3); Eosinophils Percent Auto 1.9 % (0-4.4); Hematocrit 36.8 % (42.0-52.0); Hemoglobin 12.3 g/dL (14.0-18.0); Immature Granulocyte Absolute 0.02 K/mm3 (0.00-0.031); Immature Granulocyte Percent A 0.4 % (0-0.5); Lymphocytes Absolute Auto 1.34 K/mm3 (0.9-3.2); Lymphocytes Percent Auto 26.1 % (18.3-44.2); Mean Corpuscular HGB Conc 33.4 g/dl (32-36); Mean Corpuscular Hemoglobin 29.6 pg (26-34); Mean Corpuscular Volume 88.7 fl (80-100); Mean Platelet Volume 10.7 fl (7.4-10.4); Monocytes Absolute Auto 0.9 K/mm3 (0.1-0.6); Monocytes Percent Auto 17.1 % (2.6-8.5); Neutrophils Absolute Auto 2.8 K/mm3 (1.3-6.7); Neutrophils Percent Auto 54.1 % (45.5-73.1); Platelet Count Result 185 k/mm3 (150-375); Red Blood Count 4.15 M/mm3 (4.6-6.20); Red Cell Distribution Width 15.8 % (11.5-14.5); White Blood Count 5.1 K/mm3 (4.5-10.0)
[2021-11-23 06:41] LABS: INR 1.1; Prothrombin Time 13.7 Seconds (11.1-14.7)
[2021-11-23 06:43] LABS: Alanine Aminotransferase 13 U/L (6-50); Albumin Level 4.5 g/dL (3.5-5.1); Alkaline Phosphatase 81 U/L (38-126); Anion Gap 5 mmol/L (8-16); Aspartate Amino Transferase 23 U/L (17-59); Bilirubin,Total 0.3 mg/dL (0.2-1.3); Blood Urea Nitrogen 29 mg/dL (9-20); Calcium 8.7 mg/dL (8.4-10.2); Carbon Dioxide 28 mmol/L (22-30); Chloride 105 mmol/L (98-107); Estimated CRCL calculation 44 ml/min; Estimated Glomerular Filt Rate 44; Glucose 100 mg/dL (65-110); Potassium 4.5 mmol/L (3.4-5.0); Sodium 138 mmol/L (137-145)
[2021-11-23 06:54] LABS: Troponin I 0.022 ng/mL (0.000-0.034)
[2021-11-23 07:02] VITALS: BP 137/83; PULSE 66; RESP 16; O2SAT 95
== END 2021-11-23 07:07 | disposition home or self-care (01) ==
PROVIDERS: Emergency Provider Emergency Medicine
DX: K29.70 Gastritis, unspecified, without bleeding (principal); N40.0 Benign prostatic hyperplasia without lower urinary tract symptoms; Z98.49 Cataract extraction status, unspecified eye; Z87.891 Personal history of nicotine dependence; Z79.01 Long term (current) use of anticoagulants
CPT/HCPCS: 36415; 80053; 84484; 85025; 85610; 99284

== ENCOUNTER 2022-02-27 10:14 | Emergency (ER) | payer MEDICARE, OTHER, SELFPAY ==
[2022-02-27 10:16] VITALS: BP 142/74; PULSE 71; RESP 14; TEMP 36.4; O2SAT 99
--- NOTE | 2022-02-27 10:30 | ED.GENADULT ---
HPI - General Adult General Chief complaint: Unspecified Stated complaint: pain to buttock, bilateral arms and posterior neck Time Seen by Provider: 02/27/22 10:25 History of Present Illness HPI narrative: Patient is an 86-year-old male with history of acid reflux and BPH here for evaluation of atraumatic muscle soreness in his bilateral upper and lower extremities, most notable at the shoulders and hips. He states that issue has been going on for years , but has been worsening in severity over the past 3 weeks. States it feels like a muscle soreness. States that today he decided to come get checked out because he had difficulty rising from the toilet seat today. He is taking Tylenol with good relief of his symptoms, has not taken any Tylenol today. He denies any unilateral weakness, confusion, upper respiratory type symptoms, chest pain, shortness of breath, numbness or tingling in his extremities, slurred speech or facial droop. He has an appointment with his primary care doctor next week. Related Data Home Medications Medication Instructions Recorded Confirmed finasteride 5 mg tablet 5 mg PO DAILY 06/22/19 06/29/20 tamsulosin 0.4 mg capsule 0.4 mg PO DAILY 06/22/19 06/29/20 Adults Multivitamin 1 tablet PO DAILY 03/19/20 06/29/20 Glucosamine Msm 1 cap PO DAILY 03/19/20 06/29/20 Refresh See Rx Instructions .Route 03/19/20 06/29/20 .COMPLEX PRN Dry Eyes Colace 100 mg PO BID 06/29/20 06/29/20 calcium polycarbophil 625 mg PO DAILY 06/29/20 06/29/20 cholecalciferol (vitamin D3) 2,000 units PO DAILY 06/29/20 06/29/20 Allergies Allergy/AdvReac Type Severity Reaction Status Date / Time Aminoglycosides Allergy Unknown Unknown Verified 02/27/22 10:15 Macrolide Antibiotics Allergy Unknown Unknown Verified 02/27/22 10:15 Sulfa (Sulfonamide Allergy Unknown Unknown Verified 02/27/22 10:15 Antibiotics) ibuprofen AdvReac Gastrointestinal Verified 02/27/22 10:15 Upset Review of Systems Review of Systems: Gen.: Denies fevers or chills Eyes: Denies eye pain or visual change ENT: Denies congestion Respiratory: Denies shortness of breath or cough CV: Denies chest pain or palpitations GI: Denies abdominal pain nausea, emesis or diarrhea denies burning, urgency, frequency or hematuria Musculoskeletal: Reports pain in bilateral shoulders and bilateral hips. Neuro: Denies numbness, tingling, weakness or focal weakness Skin: Denies rash Except as documented, all other systems reviewed and negative PMFSH Past Medical History Medical History BPH (benign prostatic hyperplasia) Hernia Lymphedema Presence of IVC filter Surgical History Surgical History H/O hernia repair History of cataract surgery History of hip surgery Family History Family History Mother Cerebrovascular accident Father Acute myocardial infarction Social History Social History Social History: Patient drinks a couple beers 3-4 nights a week. He does not have any history of alcohol withdrawal. He quit smoking 40 years ago. He does not do drugs. He would like to be full code and if he were to come to a ventilator, he would not like to be on it very long. He says his children can make the decisions after Smoking packs per day: 2 Smoking cigarettes per day: 40.0 Years smoked: 20 Smoking pack-years: 40.00 Smoking status: Former smoker Tobacco type: cigarettes Alcohol intake: current Drinks per week: 10 Substance use: never Gender identity (if verbalized by the patient): Male Spiritual care concerns: No Exam Narrative: APPEARANCE: Well appearing, no pain in distress, well-nourished. Head: Normocephalic and atraumatic. EYES: PERRLA/EOMI, conjunctivae clear NOSE: No nasal drainage EARS: [employer]
[2022-02-27] MEDS: ACETAMINOPHEN 325 MG TABLET 650 MG PO (10:42)
[2022-02-27 11:01] LABS: Basophils Percent Auto 0.4 % (0.2-1.2); Eosinophils Absolute Auto 0.1 K/mm3 (0-0.3); Eosinophils Percent Auto 1.5 % (0-4.4); Hematocrit 35.3 % (42.0-52.0); Hemoglobin 11.7 g/dL (14.0-18.0); Immature Granulocyte Absolute 0.03 K/mm3 (0.00-0.031); Immature Granulocyte Percent A 0.4 % (0-0.5); Lymphocytes Absolute Auto 0.78 K/mm3 (0.9-3.2); Lymphocytes Percent Auto 10.6 % (18.3-44.2); Mean Corpuscular HGB Conc 33.1 g/dl (32-36); Mean Corpuscular Hemoglobin 29.6 pg (26-34); Mean Corpuscular Volume 89.4 fl (80-100); Mean Platelet Volume 10.2 fl (7.4-10.4); Monocytes Absolute Auto 1.1 K/mm3 (0.1-0.6); Monocytes Percent Auto 14.6 % (2.6-8.5); Neutrophils Absolute Auto 5.4 K/mm3 (1.3-6.7); Neutrophils Percent Auto 72.5 % (45.5-73.1); Platelet Count Result 217 k/mm3 (150-375); Red Blood Count 3.95 M/mm3 (4.6-6.20); Red Cell Distribution Width 15.8 % (11.5-14.5); White Blood Count 7.4 K/mm3 (4.5-10.0)
[2022-02-27 11:13] LABS: Alanine Aminotransferase 14 U/L (6-50); Albumin Level 4.1 g/dL (3.5-5.1); Alkaline Phosphatase 95 U/L (38-126); Anion Gap 8 mmol/L (8-16); Aspartate Amino Transferase 19 U/L (17-59); Bilirubin,Total 0.4 mg/dL (0.2-1.3); Blood Urea Nitrogen 30 mg/dL (9-20); Carbon Dioxide 24 mmol/L (22-30); Chloride 107 mmol/L (98-107); Creatine Kinase 42 U/L (55-170); Estimated CRCL calculation 46 ml/min; Estimated Glomerular Filt Rate 48; Glucose 109 mg/dL (65-110); Phosphorus 3.8 mg/dL (2.5-4.5); Potassium 4.2 mmol/L (3.4-5.0); Sodium 139 mmol/L (137-145)
== END 2022-02-27 12:05 | disposition home or self-care (01) ==
PROVIDERS: Physician Assistant; Emergency Provider Emergency Medicine
DX: M16.0 Bilateral primary osteoarthritis of hip (principal); M19.012 Primary osteoarthritis, left shoulder; M19.011 Primary osteoarthritis, right shoulder; N40.0 Benign prostatic hyperplasia without lower urinary tract symptoms; I89.0 Lymphedema, not elsewhere classified; Z98.49 Cataract extraction status, unspecified eye; Z87.891 Personal history of nicotine dependence; Z79.01 Long term (current) use of anticoagulants
CPT/HCPCS: 36415; 80053; 82550; 83735; 84100; 85025; 99283; A9270

== ENCOUNTER 2022-11-18 18:47 | Emergency (ER) | payer MEDICARE, OTHER, SELFPAY ==
--- NOTE | ~2022-11-18 | XR_ITS ---
EXAM: XR finger 5th LT min 2V, XR hand LT min 3V DATE: 11/18/2022 21:13 HISTORY: finger pain, fall . COMPARISON: None available. FINDINGS: Decreased mineralization. Oblique fracture of the distal left fifth metacarpal with anteri or and medial angulation of the distal fragment and mild anterior displacement. Scapholunate widening . No lytic or blastic lesion. Severe degenerative change at the triscaphe joint. No erosion or perios teal change. Soft tissue swelling about the wrist. IMPRESSION: Displaced and angulated fracture of the distal left fifth metacarpal (boxer's fracture). Scapholunate widening, presumed to be chronic unless accompanied by acute pain/tenderness, in which c ase consider dedicated wrist radiographs Reviewed, dictated and finalized at location K. IMPRESSION: Displaced and angulated fracture of the distal left fifth metacarpa l (boxer's fracture). Scapholunate widening, presumed to be chronic unless acco mpanied by acute pain/tenderness, in which case consider dedicated wrist radiog raphs
--- NOTE | ~2022-11-18 | XR_ITS ---
EXAMINATION: XR hand LT min 3V INDICATION: Fifth metacarpal fracture post reduction TECHNIQUE: Three views of the left hand are obtained on four radiographs. COMPARISON: 11/18/2022 at 2107 hours FINDINGS: Again seen is an oblique fracture in the distal neck of the fifth metacarpal. Palmar displa cement and angulation persists but are partially reduced. A splint has been applied. 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 IMPRESSION: 1. Partially reduced and splinted fifth metacarpal fracture. Reviewed, dictated and finalized at location A.
[2022-11-18 19:08] VITALS: BP 141/80; PULSE 61; RESP 16; TEMP 36.2; O2SAT 99
--- NOTE | 2022-11-18 21:49 | ED.FALL ---
HPI - Fall General Chief Complaint: Fall Stated Complaint: fall Time Seen by Provider: 11/18/22 21:34 History of Present Illness HPI Narrative: Patient is a 86-year-old male here for evaluation of left hand pain after a fall today. Patient states he was ambulating in his usual state of health after eating in a restaurant when he tripped over a curb, causing him to land with his left hand outstretched. He also scraped his left elbow against the curb. He has had pain and swelling to the dorsum of his left hand ever since. Denies any paresthesia in the hand. No weakness, head injury, loss of consciousness, other injury sustained in the fall. Related Data Home Medications Medication Instructions Recorded Confirmed finasteride 5 mg tablet 5 mg PO DAILY 06/22/19 06/29/20 tamsulosin 0.4 mg capsule 0.4 mg PO DAILY 06/22/19 06/29/20 Adults Multivitamin 1 tablet PO DAILY 03/19/20 06/29/20 Glucosamine Msm 1 cap PO DAILY 03/19/20 06/29/20 Refresh See Rx Instructions .Route 03/19/20 06/29/20 .COMPLEX PRN Dry Eyes Colace 100 mg PO BID 06/29/20 06/29/20 calcium polycarbophil 625 mg PO DAILY 06/29/20 06/29/20 cholecalciferol (vitamin D3) 2,000 units PO DAILY 06/29/20 06/29/20 Allergies Allergy/AdvReac Type Severity Reaction Status Date / Time Aminoglycosides Allergy Unknown Unknown Verified 11/18/22 19:56 Macrolide Antibiotics Allergy Unknown Unknown Verified 11/18/22 19:56 Sulfa (Sulfonamide Allergy Unknown Unknown Verified 11/18/22 19:56 Antibiotics) ibuprofen AdvReac Gastrointestinal Verified 11/18/22 19:56 Upset Review of Systems Review of Systems: Gen.: Denies fevers or chills Eyes: Denies eye pain or visual change ENT: Denies congestion Respiratory: Denies shortness of breath or cough CV: Denies chest pain or palpitations GI: Denies abdominal pain nausea, emesis or diarrhea denies burning, urgency, frequency or hematuria Musculoskeletal: Reports left hand pain Neuro: Denies numbness, tingling, weakness or focal weakness Skin: Denies rash Except as documented, all other systems reviewed and negative [facility] Past Medical History Medical History BPH (benign prostatic hyperplasia) Hernia Lymphedema Presence of IVC filter Surgical History Surgical History H/O hernia repair History of cataract surgery History of hip surgery Family History Family History Mother Cerebrovascular accident Father Acute myocardial infarction Social History Social History Social History: Patient drinks a couple beers 3-4 nights a week. He does not have any history of alcohol withdrawal. He quit smoking 40 years ago. He does not do drugs. He would like to be full code and if he were to come to a ventilator, he would not like to be on it very long. He says his children can make the decisions after Smoking packs per day: 2 Smoking cigarettes per day: 40.0 Years smoked: 20 Smoking pack-years: 40.00 Smoking status: Former smoker Tobacco type: cigarettes Alcohol intake: current Drinks per week: 10 Substance use: never Gender identity (if verbalized by the patient): Male Spiritual care concerns: No Exam Narrative: APPEARANCE: Well appearing, no pain in distress, well-nourished. Head: Normocephalic and atraumatic. EYES: PERRLA/EOMI, conjunctivae clear NOSE: No nasal drainage EARS: External ear normal in appearance THROAT: Oropharynx is clear. Mucous membranes are moist. NECK: Supple. No adenopathy, no masses. RESPIRATORY: Airway patent, respirations nonlabored. Clear to auscultation bilaterally, no rales, rhonchi, wheezing. CARDIOVASCULAR: Regular rate and rhythm without murmurs, rubs, or gallops. ABDOMINAL: Normoactive bowel sounds. Soft, nontender, nondistended
[2022-11-18] MEDS: LIDOCAINE HCL 1% LOCAL INJ 10 ML VIAL 5 ML INFILTRATE (22:22)
[2022-11-18] MEDS: HYDROcodone/acetaminophen (*CRX) 5-325 MG TABLET 1 TAB PO (22:22)
[2022-11-18 23:48] VITALS: BP 151/91; PULSE 60; RESP 16; O2SAT 99
== END 2022-11-18 23:50 | disposition home or self-care (01) ==
PROVIDERS: Emergency Provider Physician Assistant
DX: S62.337A Displaced fracture of neck of fifth metacarpal bone, left hand, initial encounter for closed fracture (principal); N40.0 Benign prostatic hyperplasia without lower urinary tract symptoms; Z98.49 Cataract extraction status, unspecified eye; Z87.891 Personal history of nicotine dependence; W10.1XXA Fall (on)(from) sidewalk curb, initial encounter
CPT/HCPCS: 26605; 73130; 73140; 99285; A9270

== ENCOUNTER 2022-12-02 00:09 | Day surgery (SDC) | payer MEDICARE, OTHER, SELFPAY ==
--- NOTE | 2022-11-29 13:54 | PC.NURSE ---
Report to the Outpatient Waiting Room, entrance under the green pavilion located off [facility], at time _0745 on date ___12/02/22____. Planned Procedure Time: __944 . Time changes happen often and if your time is changed the preop area will call you the afternoon before. - You and your visitor will be asked to self-screen and do not enter if you have any COVID symptoms. - A mask is optional within the hospital at this time. Patients may have clear liquids (water, carbonated beverages, clear teas, apple juice) until 3 hours prior to surgery with a maximum of 20 ounces. - No food from midnight until time of surgery - Infants may have breast milk until 4 hours before surgery, infant formula 6 hours prior to surgery. - Children will be allowed to drink immediately following surgery. If applicable, please bring a bottle or sippy cup to assist with drinking. Juice, water, soda, and popsicles are readily available. For infants on formula, please bring formula the day of surgery. Pacifiers are allowed. Take the following medications with a SIP of water the morning of surgery: ____NONE DO NOT STOP ANY OF YOUR OTHER PRESCRIPTION MEDICATIONS PRIOR TO SURGERY ?EXCEPT THE FOLLOWING Medications to discontinue per physician ____VITAMINS/SUPP 3 DAYS PRE OP. LAST DOSE 11/29/22 Please no make-up, nail canadian, hairspray, perfume, deodorant, or body powder the day of surgery. No jewelry (including any body piercings) or valuables the day of surgery, leave them at home. Please take a shower or bath the night before, or the morning of, surgery with an antibacterial soap. Wear comfortable, loose fitting clothing. Children are encouraged to wear pajamas. - Jewelry must be removed prior to entering the operating room. Rings and piercings that are not removed may be cut off. - The hospital will not accept responsibility for valuables. - Please leave all valuables, including medications, at home the day of surgery. If you are going home after surgery, a licensed independent driver must drive you home. - NO public transportation without another adult if you receive anesthesia. - We recommend that an adult stay with you for 24 hours following discharge. - We also recommend that you do not drive, make important decision, drink alcoholic beverages, or take any drugs that were not prescribed by your health care provider for at least 24 hours after your discharge time. For Pediatric surgeries, we recommend two adults accompany the child home. Follow any additional instructions given to you from your surgeon. If you or anyone in your household have experienced Covid symptoms in the past week, please notify your surgeon or the nurse liaison at the phone number below for possible testing. Telephone instructions given to ___PATIENT and asked if any additional questions and then verbalized understanding. Patient advised to call surgeon office or pre surgery nurse liaison [phone] if any additional questions.
[2022-11-29 14:01] VITALS: BMI 32.1
[2022-12-02] VITALS (8 sets, daily range): BP systolic 146–172; BP diastolic 67–85; PULSE 59–88; RESP 12–16; TEMP 36.1–36.6; O2SAT 97–99
--- NOTE | ~2022-12-02 | XR_ITS ---
EXAMINATION: XR surgery orthopedic DATE: 12/02/2022 15:00 CDT INDICATION: LT HAND . TECHNIQUE: 6 fluoroscopic images of the left hand were obtained during hardware fixation the left herbert d performed by the surgeon. I was not present in the operating room. Fluoroscopy exposure time was 48 .5 seconds. Air Kerma 1.93 mGy. DAP 0.65506 mGym2. COMPARISON: X-ray left hand 11/18/2022 FINDINGS: In fixation of the proximal and distal aspects of the fractured fifth metacarpal to the fourth metaca rpal. The distal pin extends to the third metacarpal. IMPRESSION: Fluoroscopic documentation of hardware fixation of the left hand. Please refer to the operative note for complete procedural details . Reviewed, dictated and finalized at location K.
--- NOTE | 2022-12-02 11:56 | WPDHPUPDATE1 ---
History and Physical Update Update Date/Time: 12/02/22 11:56 History and Physical has been reviewed, including an updated exam of the patient. There are NO changes in the patient's condition. Risks, benefits, and alternatives have been discussed and questions answered. Patient agrees to proceed with procedure.
[2022-12-02] MEDS: ceFAZolin 2 GM/D5W 50 ML 2 GM/50 ML BAG IVPB (13:25)
[2022-12-02] MEDS: ACETAMINOPHEN 500 MG TABLET 1000 MG PO (13:28)
--- NOTE | 2022-12-02 13:43 | SUR.PREOP ---
pt informed delay in procedure.
--- NOTE | 2022-12-02 14:22 | WPDANESEPPF ---
Anes - Initial Pre Proc Eval Procedure: Operation Date: 12/02/22 14:15 Proposed Procedures p Open or Closed Reduction Left Fifth Metacarpal Neck with Possible Pin Fixation or External Splint - Jesu Abraham MD Date/Time: 12/02/22 14:22 Surgeon: Jesu Abraham MD Pre Op Diagnosis: displaced fx neck of left 5th metacarpal Patient Data Age: 86 Gender: M Height: 1.88 m Weight: 114.6 kg Last Vital Signs Temp 36.6 C 12/02/22 12:38 Pulse 65 12/02/22 12:38 Resp 16 12/02/22 12:38 BP 148/67 H 12/02/22 12:38 Pulse Ox 99 12/02/22 12:38 O2 Del Method Room Air 12/02/22 12:38 Allergies Allergy/AdvReac Type Severity Reaction Status Date / Time Aminoglycosides Allergy Intermediate Hives Verified 12/02/22 13:09 Macrolide Antibiotics Allergy Intermediate Hives Verified 12/02/22 13:09 Sulfa (Sulfonamide Allergy Intermediate Hives Verified 12/02/22 13:09 Antibiotics) ibuprofen AdvReac Mild Gastrointestinal Verified 12/02/22 13:09 Upset Home Medications Medication Instructions Recorded Confirmed Type finasteride 5 mg tablet 5 mg PO DAILY 06/22/19 12/02/22 History tamsulosin 0.4 mg capsule 0.4 mg PO DAILY 06/22/19 12/02/22 History pantoprazole 40 mg tablet,delayed 40 mg PO Q12HR #60 tabs 06/25/19 12/02/22 Rx release Refresh See Rx Instructions .Route 03/19/20 12/02/22 History .COMPLEX PRN Dry Eyes Colace 100 mg PO BID 06/29/20 12/02/22 History cholecalciferol (vitamin D3) 2,000 units PO DAILY 06/29/20 12/02/22 History Patient hx anesthesia problems: none Family hx anesthesia problems: none Results Review: All pre-operative results and documents have been reviewed as part of the pre-operative evaluation. [facility] Past Medical History Medical History BPH (benign prostatic hyperplasia) Hernia Lymphedema Presence of IVC filter Surgical History Surgical History H/O hernia repair History of cataract surgery History of hip surgery Family History Family History Mother Cerebrovascular accident Father Acute myocardial infarction Social History Social History Social History: Patient drinks a couple beers 3-4 nights a week. He does not have any history of alcohol withdrawal. He quit smoking 40 years ago. He does not do drugs. He would like to be full code and if he were to come to a ventilator, he would not like to be on it very long. He says his children can make the decisions after Smoking packs per day: 2 Smoking cigarettes per day: 40.0 Years smoked: 20 Smoking pack-years: 40.00 Smoking status: Former smoker Tobacco type: cigarettes Smoking end date: 06/06/69 Alcohol intake: current Drinks per week: 14 Substance use: never Living arrangements: alone Gender identity (if verbalized by the patient): Male Spiritual care concerns: No Anes - Eval Final PreProcedure Day of Procedure 12/02/22 14:22 Patient weight: obese Heart: regular rate and rhythm Lungs: decreased breath sounds Airway: Mallampati scale class II Neurological: alert and oriented Last oral intake: >/= 8 hours ASA classification: III Emergent: no Anesthetic plan: proceed Anesthesia type and monitoring: general LMA and standard monitoring Results Review: All pre-operative results and documents have been reviewed as part of the pre-operative evaluation. Informed Consent: The patient's anesthetic plan and its attendant risks and benefits were discussed with the patient/family/POA. Questions were solicited and answers provided to the satisfaction of the patient/family/POA.
[2022-12-02] MEDS: LACTATED RINGERS 1,000 ML 30 ML IV CONT (14:31)
[2022-12-02] MEDS: LIDO 1%/EPINEPHRINE 1:100,000 50 ML VIAL INFILTRATE (15:36)
--- NOTE | 2022-12-02 16:12 | W.PM.PROC2 ---
Procedure Note - Detailed Date of Procedure 12/02/22 Pre-op Diagnosis displaced fx neck of left 5th metacarpal Post-op Diagnosis Same Procedure Performed Open reduction internal fixation of the left 5th metacarpal neck fracture Surgeon Jesu Abraham MD [place] [facility] Anest[facility] General Description of Procedure The patient was marked for the fracture site of the 5th metacarpal neck in the holding area. The splint was left off at that point. The patient was transferred to the operating room where he was placed supine on the operating table. He was given general endotracheal anesthesia. The left upper extremity was prepped and draped in usual fashion. The surgical site was marked. The area was imaged with the C-arm. Attempt was made to reduce the fracture and that could not be done. The incision site was marked over the dorsal lateral 5th metacarpal area centered on the neck. The extremity was exsanguinated the tourniquet inflated 250 mmHg. The incision was made and the tendons were not skeletonized. Incision was made between 2 slips of the extensor tendon right over the fracture. The periosteum was incised and the fracture site was opened. We were able to reduce this with the use of a U[place] avelina. The fracture was unstable. We elected to place a 0.035 in C-wire transversely across the shaft of the metacarpal from the 5th into the 4th. Following that a .035nd inch C wire was driven from the 5th into the 4th through the head. The positioning and stability were satisfactory. The pins were cut short beneath the skin and bent and rotated against the 5th metacarpal. Care was taken to avoid impinging on the tendons or any nerves. The wound was irrigated the final images were made the finger was demonstrated to have full range of motion passively. The skin was closed with a running 5 0 nylon. A soft bulky bandage was applied with an Fredy wrap the tourniquet was released. He was discharged from the operating room stable condition. Estimated Blood Loss 2 Drains No Packing No Pathology None sent Complications No immediate complications Condition Stable Disposition PACU
[2022-12-02] MEDS: fentaNYL CITRATE INJ (*CRX) 100 MCG/2 ML VIAL 25 MCG IV PUSH ×4 (16:20→16:40)
[2022-12-02] MEDS: oxyCODONE HCL (*CRX) 5 MG TAB IR PO (17:10)
== END 2022-12-02 17:50 | disposition home or self-care (01) ==
PROVIDERS: Visit Provider Plastic Surgery
PROC: (CPT 26615; principal; 2022-12-02 14:15)
DX: S62.337A Displaced fracture of neck of fifth metacarpal bone, left hand, initial encounter for closed fracture (principal); N40.0 Benign prostatic hyperplasia without lower urinary tract symptoms; Z87.891 Personal history of nicotine dependence; E66.9 Obesity, unspecified; Z68.32 Body mass index [BMI] 32.0-32.9, adult; W19.XXXA Unspecified fall, initial encounter
CPT/HCPCS: 26615; 99199; A9270; C1713; J0690; J1100; J2405; J2704; J3010; J7120

== ENCOUNTER 2023-12-24 10:46 | Inpatient (IN) | payer MEDICARE, OTHER, SELFPAY ==
[2023-12-24] VITALS (14 sets, daily range): BP systolic 124–174; BP diastolic 70–104; PULSE 62–87; RESP 12–20; TEMP 36.1–37.1; O2SAT 94–100; BMI 32.5
--- NOTE | ~2023-12-24 | CT_ITS ---
EXAMINATION: CTA chest PE protocol DATE: 12/24/2023 14:03 INDICATION: Lower limb swelling. Chest pain radiating to both arms. Elevated d-dimer. TECHNIQUE: Computed tomography (CT) pulmonary angiogram of the chest was performed with 100 mL Omnipa que-350 intravenous contrast. Additional 3D reconstructions utilizing coronal maximum intensity proje ction (MIP) were performed. Automated exposure control and iterative reconstruction technique were em ployed. The dose-length product was 849.18 mGy-cm. COMPARISON: None FINDINGS: No pulmonary embolism. 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 Mild dependent atelectasis in bilateral lower lobes and mild discoid atelectasis in the lingula. No pneumonia, pulmonary edema or pleural effusion. Cardiomegaly. Lipomatous hypertrophy of t he atrial septum. Atherosclerotic coronary artery calcifications. No pericardial or pleural effusion. Thoracic aorta is normal in caliber with no dissection. No pathologically enlarged thoracic lymphade nopathy. Small sliding-type hiatal hernia. Left renal cysts the largest measuring 7.5 cm . Moderate t o severe thoracic spondylosis. IMPRESSION: 1. No pulmonary embolism or other acute cardiopulmonary disease. 2. Cardiomegaly. 3. Small sliding-type hiatal hernia. Reviewed, dictated and finalized at location A.
--- NOTE | ~2023-12-24 | XR_ITS ---
EXAMINATION: XR chest 2V 12/24/2023 11:40 INDICATION: Chest pain PROCEDURE: 2 view chest COMPARISON: Comparison to multiple prior studies sequentially, with oldest reviewed study dated 06/22. FINDINGS: The lungs are clear. The cardiomediastinal silhouette is within normal limits. There are no pleural effusions. There is no pneumothorax suspected. IMPRESSION: 1: NO ACUTE CARDIOPULMONARY DISEASE. Reviewed, dictated and finalized at location B.
--- NOTE | ~2023-12-24 | US_ITS ---
EXAMINATION: US arterial ankle brachial ind DATE: 12/25/2023 11:40 INDICATION: Syncopal pedal pulses TECHNIQUE: Segmental pressures and plethysmographic and Doppler waveforms of the brachial and lower e xtremity arteries were obtained. COMPARISON: None. FINDINGS: Right and left brachial artery pressures of 146 mm Hg and 148 mm Hg, respectively, are concordant (no rmal difference <= 30 mmHg). The right ankle-brachial index (RENETTA) is 1.26 (normal >= 0.9-1.0). The right great toe-brachial index (TBI) is 0.44 (normal >= 0.65). Arterial Doppler waveforms are biphasic with brisk systolic upstrokes at both right posterior tibial and dorsalis pedis arteries. The left RENETTA is 1.28. The left TBI is 0.70. Arterial Doppler waveforms are biphasic with brisk systol ic upstrokes at both left posterior tibial and dorsalis pedis arteries. IMPRESSION: 1. Arterial occlusive disease to the right lower limb with mildly decreased right TBI but with normal RENETTA. 2. No significant arterial occlusive disease to the left lower limb with normal left RENETTA and TBI. Of note pressures are essentially equivalent at each of the bilateral posterior tibial and dorsalis pedi s arteries. Reviewed, dictated and finalized at location A. IMPRESSION: 1. Arterial occlusive disease to the right lower limb with mildly decreased rig ht TBI but with normal RENETTA. 2. No significant arterial occlusive disease to the left lower limb with normal left RENETTA and TBI. Of note pressures are essentially equivalent at each of the bilateral posterior tibial and dorsalis pedis arteries.
--- NOTE | 2023-12-24 10:47 | ECG_ITS ---
Test Date: 2023-12-24 10:52:59 Measurements Intervals [place] Rate: 67 P: 23 [place]: 197 QRS: 4 QRSD: 137 T: 48 QT: 417 QTc: 442 Interpretive Statements SINUS RHYTHM WITH OCCASIONAL SUPRAVENTRICULAR PREMATURE COMPLEXES RIGHT BUNDLE BRANCH BLOCK MINIMAL Q WAVES- ANTEROLATERAL LEADS CONSIDER HIGH LATERAL INFARCT, AGE INDETERMINATE BASELINE ARTIFACT- I, II, AVR, AVL, AVF, V4-V6 ABNORMAL ECG No previous ECG available for comparison Electronically Signed On 12-24-2023 15:21:08 CDT by Renny Gamble D.O.
[2023-12-24 11:07] LABS: Basophils Percent Auto 0.2 % (0.2-1.2); Eosinophils Percent Auto 0.6 % (0-4.4); Hematocrit 36.5 % (42.0-52.0); Hemoglobin 12.1 g/dL (14.0-18.0); Immature Granulocyte Absolute 0.03 K/mm3 (0.00-0.031); Immature Granulocyte Percent A 0.6 % (0-0.5); Lymphocytes Absolute Auto 0.77 K/mm3 (0.9-3.2); Lymphocytes Percent Auto 15.2 % (18.3-44.2); Mean Corpuscular HGB Conc 33.2 g/dl (32-36); Mean Corpuscular Hemoglobin 29.2 pg (26-34); Mean Platelet Volume 10.6 fl (7.4-10.4); Monocytes Absolute Auto 0.5 K/mm3 (0.1-0.6); Monocytes Percent Auto 10.3 % (2.6-8.5); Neutrophils Absolute Auto 3.7 K/mm3 (1.3-6.7); Neutrophils Percent Auto 73.1 % (45.5-73.1); Platelet Count Result 172 k/mm3 (150-375); Red Blood Count 4.15 M/mm3 (4.6-6.20); Red Cell Distribution Width 15.8 % (11.5-14.5); White Blood Count 5.1 K/mm3 (4.5-10.0)
[2023-12-24 11:16] LABS: Alanine Aminotransferase 10 U/L (6-50); Albumin Level 4.3 g/dL (3.5-5.1); Alkaline Phosphatase 101 U/L (38-126); Anion Gap 11 mmol/L (4-12); Aspartate Amino Transferase 17 U/L (17-59); Bilirubin,Total 0.6 mg/dL (0.2-1.3); Blood Urea Nitrogen 32 mg/dL (9-20); Calcium 8.8 mg/dL (8.4-10.2); Carbon Dioxide 26 mmol/L (22-30); Chloride 103 mmol/L (98-107); Estimated CRCL calculation 41 ml/min; Estimated Glomerular Filt Rate 44; Glucose 104 mg/dL (65-110); Lipase 66 U/L (23-300); Potassium 4.2 mmol/L (3.4-5.0); Sodium 140 mmol/L (137-145)
[2023-12-24 11:18] LABS: INR 1.1; Prothrombin Time 14.7 Seconds (11.1-14.7)
[2023-12-24 11:19] LABS: Partial Thromboplastin Time 35.5 Seconds (22.3-36.8)
[2023-12-24 11:29] LABS: Troponin I < 0.012 ng/mL (0.000-0.034)
--- NOTE | 2023-12-24 12:47 | ED.CHESTPAIN ---
HPI - Chest Pain General Chief Complaint: Chest Pain Stated Complaint: chest pain Time Seen by Provider: 12/24/23 12:11 Source: patient and family (daughter and son in law) Limitations: no limitations History of Present Illness HPI narrative: Patient presents with onset chest pain while rest approximately hour prior to arrival. He states this has happened before few days ago but at that time it only lasted for a few minutes. He notes pain radiating to his bilateral arms. Cannot describe the quality of pain. He states to 310 in severity initially he was concerned because the duration. His chest pain is improved except he is to experiencing pain in his right arm. He denies any shortness of breath nausea, vomiting, diaphoresis, or cough. He has a primary care physician through the [place]. his left leg is swollen he states this is chronic from lymphedema which he is supposed to be wearing compression stockings. Denies a history of hypertension, hyperlipidemia CVA/TIA. He is a nonsmoker. Denies history of myocardial infarction or diabetes mellitus. 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 Related Data Home Medications Medication Instructions Recorded Confirmed finasteride 5 mg tablet 5 mg PO HS 06/22/19 12/24/23 tamsulosin 0.4 mg capsule 0.4 mg PO HS 06/22/19 12/24/23 cholecalciferol (vitamin D3) 25 25 mcg PO BID 12/24/23 12/24/23 mcg (1,000 unit) tablet (Vitamin D3) docusate sodium 100 mg capsule 100 mg PO BID 12/24/23 12/24/23 (Colace) pantoprazole 40 mg tablet,delayed 40 mg PO DAILY 12/24/23 12/24/23 release psyllium husk 0.4 gram capsule 0.8 g PO DAILY 12/24/23 12/24/23 (Metamucil) vit C 250 mg-vit E 90 mg-zinc 40 1 tablet PO Q12H 12/24/23 12/24/23 mg-copper 1 [id number] capsule (PreserVision AREDS-2) Allergies Allergy/AdvReac Type Severity Reaction Status Date / Time Aminoglycosides Allergy Intermediate Hives Verified 12/02/22 13:09 Macrolide Antibiotics Allergy Intermediate Hives Verified 12/02/22 13:09 Sulfa (Sulfonamide Allergy Intermediate Hives Verified 06/29/23 13:09 Antibiotics) ibuprofen AdvReac Mild Gastrointestinal Verified 12/02/22 13:09 Upset PMFSH Past Medical History Medical History (Updated 12/25/23 @ 12:36 by Davina Ellsworth MD) BPH (benign prostatic hyperplasia) Chronic kidney disease GERD (gastroesophageal reflux disease) Hard of hearing hearing aid History of GI bleed (~06/2019) Left leg DVT (2019) Lymphedema Presence of IVC filter (2019) Sliding hiatal hernia Surgical History Surgical History H/O hernia repair History of cataract surgery History of hip surgery Family History Family History Mother Cerebrovascular accident, Onset Age: 73 Father Acute myocardial infarction >65yo Social History Social History Social History: Patient drinks a couple beers 3-4 nights a week. He does not have any history of alcohol withdrawal. He quit smoking 40 years ago. He does not do drugs. He would like to be full code and if he were to come to a ventilator, he would not like to be on it very long. He says his children can make the decisions after Smoking packs per day: 2 Smoking cigarettes per day: 40.0 Years smoked: 20 Smoking pack-years: 40.00 Smoking status: Former smoker Tobacco type: cigarettes Smoking end date: 06/06/69 Additional smoking assessment comments: quit 1969 Alcohol intake: never Drinks per week: 14 Substance use: never Do You Feel Safe in your Home?: Yes Lack of Transportation: No Lack of Food: Never True Current Housing: I Have Housing Concerned About Future Housing: No Difficulty Paying Gas/Electric Bills: No Difficulty Paying for Meds: No Currently Unemployed: No Education: High School Diploma/GED
[2023-12-24 13:35] LABS: NT Pro B Type Natriuretic Pept 324 pg/mL (19.9-100)
--- NOTE | 2023-12-24 14:18 | ECG_ITS ---
Test Date: 2023-12-24 14:20:28 Measurements Intervals [place] Rate: 77 P: 15 [place]: 209 QRS: 0 QRSD: 138 T: 46 QT: 412 QTc: 467 Interpretive Statements SINUS RHYTHM INTRAVENTRICULAR CONDUCTION DELAY MINIMAL Q WAVES- ANTEROLATERAL LEADS CONSIDER HIGH LATERAL INFARCT, AGE INDETERMINATE BASELINE ARTIFACT- I, III, AVR, AVL, AVF, V2-V6 ABNORMAL ECG Compared to ECG 12/24/2023 10:52:59 No significant changes Electronically Signed On 12-24-2023 15:22:10 CDT by Renny Gamble D.O.
[2023-12-24 14:25] LABS: Troponin I 0.072 ng/mL (0.000-0.034)
[2023-12-24] MEDS: HEPARIN SOD/D5W 100 UNITS/ML 25,000 UNITS/250 ML BAG 10 UNITS IV CONT (15:10)
[2023-12-24] MEDS: HEPARIN SODIUM 5,000 UNITS/ML VIAL 4000 UNITS IV PUSH (15:12)
--- NOTE | 2023-12-24 16:46 | ECG_ITS ---
Test Date: 2023-12-24 16:52:35 Measurements Intervals [place] Rate: 79 P: 21 [place]: 203 QRS: -12 QRSD: 137 T: 18 QT: 406 QTc: 467 Interpretive Statements SINUS RHYTHM ATRIAL PREMATURE COMPLEX INTRAVENTRICULAR CONDUCTION DELAY CONSIDER ANTEROLATERAL MYOCARDIAL INFARCTION CONSIDER LATERAL INFARCT, AGE INDETERMINATE BASELINE ARTIFACT- I, II, III, AVR, AVL, AVF, V1-V6 ABNORMAL ECG Compared to ECG 12/24/2023 14:20:28 No significant changes Electronically Signed On 12-25-2023 07:34:04 CDT by Renny Gamble D.O.
--- NOTE | 2023-12-24 16:49 | ADMGEN ---
This patient, Raul Waters, was admitted to IMU Room 202-01. Patient/family oriented to hospital policies and general routines including ID bracelet, bed and alarms, visiting hours, pain management, procedures, bathroom and other care routines, personal items, smoking policy, room service/diet, and visiting hours. Information on how to activate the Rapid Response Team has been discussed. Patient/Family are encouraged to report perceived risks to care and to ask questions if they do not understand what they are told or what they should do.
--- NOTE | 2023-12-24 17:37 | PM.IMHP ---
H&P: HPI History of Present Illness Date/Time: 12/24/23 17:37 Chief Complaint: Chest Pain Narrative: 88-year-old male presents here with chest pain with PMH of CKD, lymphedema, IVC filter present, and BPH. The patient presents here from home via EMS for further evaluation of chest pain. Patient had acute onset of midsternal chest pain that started 1 hour prior to arrival. He describes the chest pain as nondescript, radiating into bilateral upper extremities, constant, and no aggravating/alleviating factors. Also reports episode of chest pain that occurred 4-5 days ago. He described the pain as brief, radiating into his bilateral upper extremities, and resolved without medication. Denies associated shortness of breath, palpitations, diaphoresis, nausea, or fatigue. No known cardiac history. FH - father had CT in his 70's. Chest pain resolved Shortly after arrival to the ED, states he still had small amount of pain while in the waiting room. No recurrent episodes of chest pain. No complaints at this time. Initial VS at presentation: 97? F, HR 73, RR 16, 159/83, and 100% on RA. ED workup showed: No leukocytosis, hemoglobin 12.1, normal coags, elevated D-dimer, creatinine 1.5 and GFR 44 (at baseline) initial negative and 2nd troponin 0.072, BNP 324. Review of Systems Review of Systems: All systems reviewed & are unremarkable except as noted in HPI and below PMFSH Past Medical History Medical History BPH (benign prostatic hyperplasia) Chronic kidney disease GERD (gastroesophageal reflux disease) History of GI bleed (~06/2019) Left leg DVT (2019) Lymphedema Presence of IVC filter (2019) Sliding hiatal hernia Surgical History Surgical History H/O hernia repair History of cataract surgery History of hip surgery Family History Family History Mother Cerebrovascular accident Father Acute myocardial infarction Social History Social History Social History: Patient drinks a couple beers 3-4 nights a week. He does not have any history of alcohol withdrawal. He quit smoking 40 years ago. He does not do drugs. He would like to be full code and if he were to come to a ventilator, he would not like to be on it very long. He says his children can make the decisions after Smoking packs per day: 2 Smoking cigarettes per day: 40.0 Years smoked: 20 Smoking pack-years: 40.00 Smoking status: Former smoker Tobacco type: cigarettes Smoking end date: 06/06/69 Additional smoking assessment comments: quit 1969 Alcohol intake: never Drinks per week: 14 Substance use: never Do You Feel Safe in your Home?: Yes Lack of Transportation: No Lack of Food: Never True Current Housing: I Have Housing Concerned About Future Housing: No Difficulty Paying Gas/Electric Bills: No Difficulty Paying for Meds: No Currently Unemployed: No Education: High School Diploma/GED Difficulty w/ Childcare or Family Care: No Living arrangements: alone Gender identity (if verbalized by the patient): Male Spiritual care concerns: No Meds Home Medications and Allergies Home Medications Medication Instructions Recorded Confirmed Type finasteride 5 mg tablet 5 mg PO HS 06/22/19 12/24/23 History tamsulosin 0.4 mg capsule 0.4 mg PO HS 06/22/19 12/24/23 History cholecalciferol (vitamin D3) 25 25 mcg PO BID 12/24/23 12/24/23 History mcg (1,000 unit) tablet (Vitamin D3) docusate sodium 100 mg capsule 100 mg PO BID 12/24/23 12/24/23 History (Colace) pantoprazole 40 mg tablet,delayed 40 mg PO DAILY 12/24/23 12/24/23 History release psyllium husk 0.4 gram capsule 0.8 g PO DAILY 12/24/23 12/24/23 History (Metamucil) vit C 250 mg-vit E 90 mg-zinc 40 1 tablet PO Q12H
[2023-12-24 17:52] LABS: Troponin I 0.347 ng/mL (0.000-0.034)
[2023-12-24] MEDS: TAMSULOSIN HCL 0.4 MG CAPSULE PO (20:14)
[2023-12-24] MEDS: OPTI-GEN TAB 1 TABLET PO (20:14)
[2023-12-24] MEDS: FINASTERIDE 5 MG TABLET PO (20:14)
[2023-12-24 21:17] LABS: INR 1.1; Prothrombin Time 15.1 Seconds (11.1-14.7)
[2023-12-24 21:19] LABS: Partial Thromboplastin Time 83.4 Seconds (22.3-36.8)
[2023-12-24 21:22] LABS: Cholesterol 156 mg/dL (0-200); HDL Direct 60 mg/dL; Triglycerides 81 mg/dL (<150)
[2023-12-24 21:33] LABS: LDL Cholesterol Direct 70 mg/dL
[2023-12-25] VITALS (19 sets, daily range): BP systolic 132–173; BP diastolic 62–74; PULSE 2–81; RESP 16–20; TEMP 36.3–37.1; O2SAT 94–99
[2023-12-25] MEDS: ACETAMINOPHEN 325 MG TABLET 650 MG PO (01:37)
[2023-12-25 03:18] LABS: Basophils Percent Auto 0.2 % (0.2-1.2); Eosinophils Absolute Auto 0.1 K/mm3 (0-0.3); Eosinophils Percent Auto 0.8 % (0-4.4); Hematocrit 33.5 % (42.0-52.0); Hemoglobin 11.2 g/dL (14.0-18.0); Immature Granulocyte Absolute 0.03 K/mm3 (0.00-0.031); Immature Granulocyte Percent A 0.5 % (0-0.5); Lymphocytes Absolute Auto 1.08 K/mm3 (0.9-3.2); Lymphocytes Percent Auto 18.3 % (18.3-44.2); Mean Corpuscular HGB Conc 33.4 g/dl (32-36); Mean Corpuscular Hemoglobin 29.2 pg (26-34); Mean Corpuscular Volume 87.2 fl (80-100); Mean Platelet Volume 10.9 fl (7.4-10.4); Monocytes Percent Auto 17.6 % (2.6-8.5); Neutrophils Absolute Auto 3.7 K/mm3 (1.3-6.7); Neutrophils Percent Auto 62.6 % (45.5-73.1); Platelet Count Result 157 k/mm3 (150-375); Red Blood Count 3.84 M/mm3 (4.6-6.20); Red Cell Distribution Width 15.6 % (11.5-14.5); White Blood Count 5.9 K/mm3 (4.5-10.0)
[2023-12-25 03:28] LABS: Alanine Aminotransferase 10 U/L (6-50); Albumin Level 3.8 g/dL (3.5-5.1); Alkaline Phosphatase 89 U/L (38-126); Anion Gap 11 mmol/L (4-12); Aspartate Amino Transferase 25 U/L (17-59); Bilirubin,Total 0.6 mg/dL (0.2-1.3); Blood Urea Nitrogen 31 mg/dL (9-20); Calcium 8.9 mg/dL (8.4-10.2); Carbon Dioxide 22 mmol/L (22-30); Chloride 104 mmol/L (98-107); Estimated CRCL calculation 43 ml/min; Estimated Glomerular Filt Rate 48; Glucose 101 mg/dL (65-110); Potassium 4.1 mmol/L (3.4-5.0); Sodium 137 mmol/L (137-145)
[2023-12-25 03:30] LABS: Partial Thromboplastin Time 82.5 Seconds (22.3-36.8)
[2023-12-25] MEDS: OPTI-GEN TAB 1 TABLET PO ×2 (08:40→20:39)
[2023-12-25] MEDS: CHOLECALCIFEROL 1,000 UNITS TABLET 1000 UNITS PO ×2 (08:41→16:23)
[2023-12-25] MEDS: PANTOPRAZOLE 40 MG TABLET PO (08:41)
[2023-12-25] MEDS: PSYLLIUM POWDER PACKET 1 PACKET PO (08:41)
--- NOTE | 2023-12-25 10:02 | PM.CNCAR ---
Assessment and Plan Assessment and plan (1) Acute non-ST elevation myocardial infarction (NSTEMI): Code(s): I21.4 - Non-ST elevation (NSTEMI) myocardial infarction Status: Acute Assessment and Plan: Patient presents with an ACS in the form of a non ST-elevation myocardial infarction. Start aspirin 81 mg p.o. daily. He is on heparin drip and this should be continued. P.r.n. nitroglycerin for chest pain. Start atorvastatin 40 mg daily. Metoprolol tartrate 25 mg p.o. b.i.d. goal for blood pressure and non-STEMI. 2D echocardiogram with Doppler. Despite his DNR status at this point, I have talked him about possibility of cardiac catheterization and his functionality. Patient lives independently and wishes to proceed with cardiac catheterization and would like to be resuscitated if ?reasonable chance of survival ?. Will keep NPO after midnight for coronary angiogram tomorrow (2) Chronic kidney disease: Qualifiers: Chronic kidney disease stage: unspecified stage Qualified Code(s): N18.9 - Chronic kidney disease, unspecified Code(s): N18.9 - Chronic kidney disease, unspecified Status: Acute Assessment and Plan: Creatinine 1.4 today (3) Right bundle branch block (RBBB) on electrocardiography: Code(s): I45.10 - Unspecified right bundle-branch block Status: Acute Assessment and Plan: No evidence of high-degree block (4) History of GI bleed: Onset Date: ~06/2019 Code(s): Z87.19 - Personal history of other diseases of the digestive system Status: Acute Assessment and Plan: No active bleeding at present (5) Hypertension: Code(s): I10 - Essential (primary) hypertension Status: Acute Assessment and Plan: BP is elevated. Metoprolol ordered History of Present Illness History of Present Illness Consult date/time: 12/25/23 10:02 Requesting physician: Davina Ellsworth MD Consult reason: chest pain (Non-STEMI) Reason For Visit: NSTEMI Narrative: Reason for consultation: Non-STEMI Date of service 12/25/2023 Requesting provider: Dr. Ellsworth History patient is an 88-year-old male his a history of chronic kidney disease, DVT status post IVC filter, BPH but no known cardiac history. Sent to the hospital because of significant anterior chest discomfort yesterday morning that radiated down both arms. He had a more brief episode about a week ago that was transient and self-limited. Yesterday at our he developed significant anterior chest pain which radiated to bilateral upper extremities. It lasted for a couple of hours. Came to the hospital with gradual improvement. He denies any syncope, presyncope, paroxysmal nocturnal dyspnea, orthopnea, palpitations or bleeding issues. Does have lower extremity edema which is not new or different. ECG shows no acute ST or T-wave abnormalities and with evidence of possible anterolateral infarction. Initial troponin was negative and subsequent troponins have become positive. Still slightly up trending but he is asymptomatic at this point. Review of Systems Review of Systems: All systems reviewed & are unremarkable except as noted in HPI and below Constitutional: Constitutional: Denies body ache(s) Eyes: Eyes: Denies blurry vision ENT: Denies Normal hearing present Comments: Hard of hearing Cardiovascular: Cardiovascular: Reports chest pain Respiratory: Respiratory: Denies cough, Denies hemoptysis and Denies dyspnea Gastrointestinal: Gastrointestinal: Denies abdominal pain Genitourinary: Genitourinary: Denies hematuria Musculoskeletal: Musculoskeletal: Denies back pain Integumentary/Breasts: Skin/Breast: Denies rash Neurologic: Denies Abnormal speech present Psychiatric: Psychiatric: Denies anxiety Endocrine: Endocrine: Denies excessive sweating Hematologic/Lymphatic: Hematologic/Lymphatic: Denies easy bleeding Allergic/Immunologic: Allergic/Immunologic: D
--- NOTE | 2023-12-25 10:14 | PM.IMPN ---
Progress Note: A&P Assessment and Plan (1) Acute non-ST elevation myocardial infarction (NSTEMI): Code(s): I21.4 - Non-ST elevation (NSTEMI) myocardial infarction Status: Acute Assessment and Plan: - EKG, initial: sinus rhythm with occasional supraventricular premature complexes, RBBB, minimal Q-waves anterolateral leads, consider high lateral infarct age indeterminate, baseline artifact. - EKG, repeat (1): no significant change when compared to EKG done earlier today. - CXR: No acute cardiopulmonary disease - chest CTA: No PE, cardiomegaly, small sliding-type hiatal hernia - Troponin: <0.012 -> 0.072 -> 0.347 - ASA 324 refused by patient and nitro SL PRN - cardiology consulted, awaiting recs - started on heparin gtt - add lipid panel - BNP 324, no previous echo on file. no evidence of pulmonary edema on imaging. - NPO at midnight in case of need for procedures - telemetry monitoring and admission to IMU 12/24 - cardiology recommendation reviewed: Patient presents with an ACS in the form of a non ST-elevation myocardial infarction. Start aspirin 81 mg p.o. daily. He is on heparin drip and this should be continued. P.r.n. nitroglycerin for chest pain. Start atorvastatin 40 mg daily. Metoprolol tartrate 25 mg p.o. b.i.d. goal for blood pressure and non-STEMI. 2D echocardiogram with Doppler. Despite his DNR status at this point, I have talked him about possibility of cardiac catheterization and his functionality. Patient lives independently and wishes to proceed with cardiac catheterization and would like to be resuscitated if ?reasonable chance of survival ?. Will keep NPO after midnight for coronary angiogram tomorrow - follow heparin protocol -monitor coag PT/aPTT per protocol - bleeding precoutions (2) Chronic kidney disease: Qualifiers: Chronic kidney disease stage: unspecified stage Qualified Code(s): N18.9 - Chronic kidney disease, unspecified Code(s): N18.9 - Chronic kidney disease, unspecified Status: Acute Assessment and Plan: - creatinine 1.5 and GFR 44, baseline - trend renal function - trend electrolytes, correct as needed Plan Patient here with midsternal chest pain that started 1 hour prior to arrival. resolved without medical intervention. Initial troponin negative, now up trending. Started on heparin drip. Cardiology consulted. On telemetry monitoring. Sublingual nitro p.r.n.. No previous history of cardiac disease. Diet: heart healthy, NPO at midnight GI Prophylaxis: currently indicated DVT Prophylaxis: heparin drip Lines: peripheral Code Status: DNR Time Spent With Patient Time with patient: 25 - 35 minutes Subjective Date/time seen: 12/25/23 10:14 Interval history: Narrative retrieved from H/P: 88-year-old male presents here with chest pain with PMH of CKD, lymphedema, IVC filter present, and BPH. The patient presents here from home via EMS for further evaluation of chest pain. Patient had acute onset of midsternal chest pain that started 1 hour prior to arrival. He describes the chest pain as nondescript, radiating into bilateral upper extremities, constant, and no aggravating/alleviating factors. Also reports episode of chest pain that occurred 4-5 days ago. He described the pain as brief, radiating into his bilateral upper extremities, and resolved without medication. Denies associated shortness of breath, palpitations, diaphoresis, nausea, or fatigue. No known cardiac history. FH - father had MT in his 70's. Chest pain resolved Shortly after arrival to the ED, states he still had small amount of pain while in the waiting room. No recurrent episodes of chest pain. No complaints at this time. Initial VS at presentation: 97? F, HR 73, RR 16, 159/83, and 100% on RA. ED workup showed: No leukocytosis, hemoglobin 12.1, normal coags, elevated D-dimer, creatinine 1.5 and GFR 44 (at baseline) initial negative and 2nd troponin 0.072, BNP 324.
[2023-12-25] MEDS: METOPROLOL TARTRATE 25 MG TABLET PO ×2 (10:39→20:39)
[2023-12-25] MEDS: ASPIRIN 81 MG ENTERIC TABLET PO (10:39)
[2023-12-25] MEDS: ATORVASTATIN 40 MG TABLET PO (10:39)
[2023-12-25] MEDS: HEPARIN SOD/D5W 100 UNITS/ML 25,000 UNITS/250 ML BAG 10 UNITS IV CONT (16:21)
[2023-12-25] MEDS: FINASTERIDE 5 MG TABLET PO (20:39)
[2023-12-25] MEDS: TAMSULOSIN HCL 0.4 MG CAPSULE PO (20:39)
[2023-12-25] MEDS: SODIUM CHLORIDE 0.9% IV 1,000 ML 75 ML IV CONT (20:39)
[2023-12-26] VITALS (30 sets, daily range): BP systolic 115–147; BP diastolic 54–80; PULSE 46–64; RESP 12–18; TEMP 36.2–36.6; O2SAT 94–100
--- NOTE | 2023-12-26 | ECHO_ITS ---
Patient Info Name: Raul Waters Age: 88 years : 1935 Gender: Male Ht: 74 in Wt: 261 lbs BSA: 2.52 m2 HR: 52 bpm BP: 133 / 65 mmHg Heart Rhythm: Sinus Rhythm Technical Quality: Fair Exam Date: 12/26/2023 10:11 AM Exam Location: Echo Lab Patient Status: Inpatient Admit Date: 12/24/2023 Staff Ordering Physician: Anders Dougherty MD Blast Hole Driller: Vannesa Villalba RDCS Attending Provider: Lavon Nolasco MD Referring Physician: Ladonna MORGAN; Exam Type: CA echo dop color flow w con Study Info Indications - non-stemi Complete two-dimensional, color flow and Doppler transthoracic echocardiogram is performed with contrast to opacify the left ventricle and to improve the deliniation of the left ventricle endocardial borders. Contrast/Agitated Saline Contrast/Ag. Saline: Definity Amount: 3.00 ml Administered By: Vannesa Villalba RDCS Existing IV Access: Yes IV Access Condition: patent with no signs of infiltration Summary 1. Definity contrast used to improve visualization. 2. Mild posterior hypokinesia overall well-preserved left ventricular systolic function ejection fraction 60-65%. 3. No significant valvular dysfunction. Left Ventricle Left ventricular chamber dimension is normal. Left ventricular systolic function is normal, estimated at 60-65%. There is mild concentric increased left ventricular wall thickness. The left ventricular diastolic function is grade I diastolic dysfunction. Right Ventricle Right ventricular chamber dimension is normal. Left Atria Left atrial chamber dimension is normal. Right Atria Right atrial chamber dimension is normal. Aortic Valve The aortic valve is trileaflet. There is mild aortic valve sclerosis. Pulmonic Valve The pulmonic valve is not well visualized. Mitral Valve The mitral valve has normal leaflets. The mitral valve annulus is mildly calcified. Tricuspid Valve The tricuspid valve leaflets are normal. Pericardium/Pleural The pericardium appears normal. Aorta The aortic root size at the sinus of Valsalva is normal. Left Ventricular Outflow Tract Name Value Normal LVOT 2D LVOT Diameter 1.97 cm LVOT Doppler LVOT Peak Gradient 3 mmHg LVOT Mean Gradient 2 mmHg LVOT VTI 22.36 cm LVOT VTI/AV VTI Ratio 0.90 LVOT Stroke Volume 67.90 ml LVOT CO 4.47 l/min LVOT CI 1.78 L/min/m2 Pulmonic Valve Name Value Normal RVOT Doppler RVOT Peak Gradient 2 mmHg PV Doppler PV Peak Gradient 4 mmHg PV Regurgitation Doppler TX Peak End Diasto
[2023-12-26 05:10] LABS: Partial Thromboplastin Time 80.8 Seconds (22.3-36.8)
[2023-12-26] MEDS: PANTOPRAZOLE 40 MG TABLET PO (07:58)
[2023-12-26] MEDS: METOPROLOL TARTRATE 25 MG TABLET PO (07:58)
[2023-12-26] MEDS: ASPIRIN 81 MG ENTERIC TABLET PO (07:59)
[2023-12-26] MEDS: ATORVASTATIN 40 MG TABLET PO (07:59)
[2023-12-26] MEDS: OPTI-GEN TAB 1 TABLET PO (07:59)
[2023-12-26] MEDS: CHOLECALCIFEROL 1,000 UNITS TABLET 1000 UNITS PO ×2 (07:59→16:57)
[2023-12-26] MEDS: SODIUM CHLORIDE 0.9% IV 1,000 ML 75 ML IV CONT (08:02)
--- NOTE | 2023-12-26 08:55 | PM.IMPN ---
Progress Note: A&P Assessment and Plan (1) Acute non-ST elevation myocardial infarction (NSTEMI): Code(s): I21.4 - Non-ST elevation (NSTEMI) myocardial infarction Status: Acute Assessment and Plan: - EKG, initial: sinus rhythm with occasional supraventricular premature complexes, RBBB, minimal Q-waves anterolateral leads, consider high lateral infarct age indeterminate, baseline artifact. - EKG, repeat (1): no significant change when compared to EKG done earlier today. - CXR: No acute cardiopulmonary disease - chest CTA: No PE, cardiomegaly, small sliding-type hiatal hernia - Troponin: <0.012 -> 0.072 -> 0.347 - ASA 324 refused by patient and nitro SL PRN - cardiology consulted, awaiting recs - started on heparin gtt - add lipid panel - BNP 324, no previous echo on file. no evidence of pulmonary edema on imaging. - NPO at midnight in case of need for procedures - telemetry monitoring and admission to IMU 12/24 - cardiology recommendation reviewed: Patient presents with an ACS in the form of a non ST-elevation myocardial infarction. Start aspirin 81 mg p.o. daily. He is on heparin drip and this should be continued. P.r.n. nitroglycerin for chest pain. Start atorvastatin 40 mg daily. Metoprolol tartrate 25 mg p.o. b.i.d. goal for blood pressure and non-STEMI. 2D echocardiogram with Doppler. Despite his DNR status at this point, I have talked him about possibility of cardiac catheterization and his functionality. Patient lives independently and wishes to proceed with cardiac catheterization and would like to be resuscitated if ?reasonable chance of survival ?. Will keep NPO after midnight for coronary angiogram tomorrow - follow heparin protocol -monitor coag PT/aPTT per protocol - bleeding precautions 12/25- cath today (2) Chronic kidney disease: Qualifiers: Chronic kidney disease stage: unspecified stage Qualified Code(s): N18.9 - Chronic kidney disease, unspecified Code(s): N18.9 - Chronic kidney disease, unspecified Status: Acute Assessment and Plan: - creatinine 1.5 and GFR 44, baseline - trend renal function - trend electrolytes, correct as needed Plan Patient here with midsternal chest pain that started 1 hour prior to arrival. resolved without medical intervention. Initial troponin negative, now up trending. Started on heparin drip. Cardiology consulted. On telemetry monitoring. Sublingual nitro p.r.n.. No previous history of cardiac disease. Diet: heart healthy, NPO at midnight GI Prophylaxis: currently indicated DVT Prophylaxis: heparin drip Lines: peripheral Code Status: DNR Time Spent With Patient Time with patient: 25 - 35 minutes Subjective Date/time seen: 12/26/23 08:55 Interval history: Narrative retrieved from H/P: 88-year-old male presents here with chest pain with PMH of CKD, lymphedema, IVC filter present, and BPH. The patient presents here from home via EMS for further evaluation of chest pain. Patient had acute onset of midsternal chest pain that started 1 hour prior to arrival. He describes the chest pain as nondescript, radiating into bilateral upper extremities, constant, and no aggravating/alleviating factors. Also reports episode of chest pain that occurred 4-5 days ago. He described the pain as brief, radiating into his bilateral upper extremities, and resolved without medication. Denies associated shortness of breath, palpitations, diaphoresis, nausea, or fatigue. No known cardiac history. FH - father had IL in his 70's. Chest pain resolved Shortly after arrival to the ED, states he still had small amount of pain while in the waiting room. No recurrent episodes of chest pain. No complaints at this time. Initial VS at presentation: 97? F, HR 73, RR 16, 159/83, and 100% on RA. ED workup showed: No leukocytosis, hemoglobin 12.1, normal coags, elevated D-dimer, creatinine 1.5 and GFR 44 (at baseline) initial negative and 2nd trop
[2023-12-26] MEDS: PERFLUTREN LIPID MICROSPHERES 1.5 ML VIAL DILUTED TO 10 ML TOTAL VOLUME IV PUSH (10:35)
--- NOTE | 2023-12-26 10:40 | WPDMODSED ---
Moderate Sedation Note-Pt Data Patient Data Diagnosis: Acute coronary syndrome/ non ST elevation [place] Present Complaint: chest pain Procedure to be performed/Plan: left heart catheterization Allergies Allergy/AdvReac Type Severity Reaction Status Date / Time Aminoglycosides Allergy Intermediate Hives Verified 12/02/22 13:09 Macrolide Antibiotics Allergy Intermediate Hives Verified 12/02/22 13:09 Sulfa (Sulfonamide Allergy Intermediate Hives Verified 12/02/22 13:09 Antibiotics) ibuprofen AdvReac Mild Gastrointestinal Verified 12/02/22 13:09 Upset Home Medications Medication Instructions Recorded Confirmed Type finasteride 5 mg tablet 5 mg PO HS 06/22/19 12/24/23 History tamsulosin 0.4 mg capsule 0.4 mg PO HS 06/22/19 12/24/23 History cholecalciferol (vitamin D3) 25 25 mcg PO BID 12/24/23 12/24/23 History mcg (1,000 unit) tablet (Vitamin D3) docusate sodium 100 mg capsule 100 mg PO BID 12/24/23 12/24/23 History (Colace) pantoprazole 40 mg tablet,delayed 40 mg PO DAILY 12/24/23 12/24/23 History release psyllium husk 0.4 gram capsule 0.8 g PO DAILY 12/24/23 12/24/23 History (Metamucil) vit C 250 mg-vit E 90 mg-zinc 40 1 tablet PO Q12H 12/24/23 12/24/23 History mg-copper 1 [id number] capsule (PreserVision AREDS-2) Current Medications: Active Medications Acetaminophen (Acetaminophen 325 Mg Tablet) 650 mg PO Q4H PRN PRN Reason: Mild Pain (1-3) or Fever Last Admin: 12/25/23 01:37 Dose: 650 mg Aspirin (Aspirin 81 Mg Enteric Tablet) [facility] [place] Last Admin: 12/26/23 07:59 Dose: 81 mg Atorvastatin Calcium (Atorvastatin 40 Mg Tablet) 40 mg PO DAILY [facility] Last Admin: 12/26/23 07:59 Dose: 40 mg Docusate Sodium (Docusate Sodium 100 Mg Capsule) 100 mg PO BID [facility] Last Admin: 12/26/23 07:59 Dose: Not Given Finasteride (Finasteride 5 Mg Tablet) 5 mg PO [facility] Last Admin: 12/25/23 20:39 Dose: 5 mg Heparin Sodium (Porcine) (Heparin Sodium 5,000 Units/Ml Vial) 4,000 units IV PUSH PRN PRN PRN Reason: aPTT less than 55 seconds Heparin Sodium (Porcine) (Heparin Sodium 5,000 Units/Ml Vial) 4,000 units IV PUSH PRN PRN PRN Reason: aPTT 55 - 70 seconds Heparin Sodium/Dextrose (Heparin Sodium/D5w 100 Units/Ml) 25,000 units in 250 mls @ 10 mls/hr IV CONT .Q24H [facility]; Protocol Last Titration: 12/26/23 05:15 Dose: 1,000 units/hr, 10 mls/hr Sodium Chloride (Normal Saline Iv) 1,000 mls @ 75 mls/hr IV CONT .[id number] [facility] Last Admin: 12/26/23 08:02 Dose: 75 mls/hr Metoprolol Tartrate (Metoprolol Tartrate 25 Mg Tablet) 25 mg PO Q12HR [facility] Last Admin: 12/26/23 07:58 Dose: 25 mg Multivitamins/Minerals (Opti-Gen Tab) 1 tablet PO Q12H [facility] Stop: 01/23/24 20:59 Last Admin: 12/26/23 07:59 Dose: 1 tablet Nitroglycerin (Nitroglycerin Sl 0.4 Mg Tablet) 0.4 mg SUBLINGUAL Q5MIN PRN PRN Reason: Chest Pain Ondansetron HCl (Ondansetron Inj 4 Mg/2 Ml Vial) 4 mg IV PUSH Q4H PRN PRN Reason: Nausea Pantoprazole Sodium (Pantoprazole 40 Mg Tablet) 40 mg PO DAILY [facility] Last Admin: 12/26/23 07:58 Dose: 40 mg Perflutren Lipid Microsphere (Perflutren Lipid Microspheres 1.5 Ml Vial Diluted To 10 Ml Total Volume) 0 ml IV PUSH ONCE PRN; Protocol PRN Reason: adequate visualization Stop: 12/28/23 10:15 Psyllium Hydrophilic Mucilloid (Psyllium Powder Packet) 1 packet PO QAM [facility] Last Admin: 12/26/23 07:59 Dose: Not Given Tamsulosin HCl (Tamsulosin Hcl 0.4 Mg Capsule) 0.4 mg PO HS [facility] Last Admin: 12/25/23 20:39 Dose: 0.4 mg Vitamin D (Cholecalciferol 1,000 Units Tablet) 1,000 units PO BID [facility] Last Admin: 12/26/23 07:59 Dose: 1,000 units Sedation/Anesthesia: No previous sedation/anesthesia problems (including family history). COUNTS INCLUDE 234 BEDS AT THE [facility] Past Medical History Medical History (Updated 12/25/23 @ 12:36 by Davina Ellsworth MD) BPH (benign prostatic hyperplasia) Chronic kidney disease GERD (gastroesophageal reflux disease) Hard of hearing hearing aid History
--- NOTE | 2023-12-26 10:43 | WPDMODSED ---
Moderate Sedation Note-Pt Data Patient Data Diagnosis: acute coronary syndrome / non ST elevation [place] Present Complaint: chest pain Procedure to be performed/Plan: left heart catheterization Allergies Allergy/AdvReac Type Severity Reaction Status Date / Time Aminoglycosides Allergy Intermediate Hives Verified 12/02/22 13:09 Macrolide Antibiotics Allergy Intermediate Hives Verified 12/02/22 13:09 Sulfa (Sulfonamide Allergy Intermediate Hives Verified 12/02/22 13:09 Antibiotics) ibuprofen AdvReac Mild Gastrointestinal Verified 12/02/22 13:09 Upset Home Medications Medication Instructions Recorded Confirmed Type finasteride 5 mg tablet 5 mg PO HS 06/22/19 12/24/23 History tamsulosin 0.4 mg capsule 0.4 mg PO HS 06/22/19 12/24/23 History cholecalciferol (vitamin D3) 25 25 mcg PO BID 12/24/23 12/24/23 History mcg (1,000 unit) tablet (Vitamin D3) docusate sodium 100 mg capsule 100 mg PO BID 12/24/23 12/24/23 History (Colace) pantoprazole 40 mg tablet,delayed 40 mg PO DAILY 12/24/23 12/24/23 History release psyllium husk 0.4 gram capsule 0.8 g PO DAILY 12/24/23 12/24/23 History (Metamucil) vit C 250 mg-vit E 90 mg-zinc 40 1 tablet PO Q12H 12/24/23 12/24/23 History mg-copper 1 [id number] capsule (PreserVision AREDS-2) Current Medications: Active Medications Acetaminophen (Acetaminophen 325 Mg Tablet) 650 mg PO Q4H PRN PRN Reason: Mild Pain (1-3) or Fever Last Admin: 12/25/23 01:37 Dose: 650 mg Aspirin (Aspirin 81 Mg Enteric Tablet) [facility] [place] Last Admin: 12/26/23 07:59 Dose: 81 mg Atorvastatin Calcium (Atorvastatin 40 Mg Tablet) 40 mg PO DAILY [facility] Last Admin: 12/26/23 07:59 Dose: 40 mg Docusate Sodium (Docusate Sodium 100 Mg Capsule) 100 mg PO BID [facility] Last Admin: 12/26/23 07:59 Dose: Not Given Finasteride (Finasteride 5 Mg Tablet) 5 mg PO [facility] Last Admin: 12/25/23 20:39 Dose: 5 mg Heparin Sodium (Porcine) (Heparin Sodium 5,000 Units/Ml Vial) 4,000 units IV PUSH PRN PRN PRN Reason: aPTT less than 55 seconds Heparin Sodium (Porcine) (Heparin Sodium 5,000 Units/Ml Vial) 4,000 units IV PUSH PRN PRN PRN Reason: aPTT 55 - 70 seconds Heparin Sodium/Dextrose (Heparin Sodium/D5w 100 Units/Ml) 25,000 units in 250 mls @ 10 mls/hr IV CONT .Q24H [facility]; Protocol Last Titration: 12/26/23 05:15 Dose: 1,000 units/hr, 10 mls/hr Sodium Chloride (Normal Saline Iv) 1,000 mls @ 75 mls/hr IV CONT .[id number] [facility] Last Admin: 12/26/23 08:02 Dose: 75 mls/hr Metoprolol Tartrate (Metoprolol Tartrate 25 Mg Tablet) 25 mg PO Q12HR [facility] Last Admin: 12/26/23 07:58 Dose: 25 mg Multivitamins/Minerals (Opti-Gen Tab) 1 tablet PO Q12H [facility] Stop: 01/23/24 20:59 Last Admin: 12/26/23 07:59 Dose: 1 tablet Nitroglycerin (Nitroglycerin Sl 0.4 Mg Tablet) 0.4 mg SUBLINGUAL Q5MIN PRN PRN Reason: Chest Pain Ondansetron HCl (Ondansetron Inj 4 Mg/2 Ml Vial) 4 mg IV PUSH Q4H PRN PRN Reason: Nausea Pantoprazole Sodium (Pantoprazole 40 Mg Tablet) 40 mg PO DAILY [facility] Last Admin: 12/26/23 07:58 Dose: 40 mg Perflutren Lipid Microsphere (Perflutren Lipid Microspheres 1.5 Ml Vial Diluted To 10 Ml Total Volume) 0 ml IV PUSH ONCE PRN; Protocol PRN Reason: adequate visualization Stop: 12/28/23 10:15 Psyllium Hydrophilic Mucilloid (Psyllium Powder Packet) 1 packet PO QAM [facility] Last Admin: 12/26/23 07:59 Dose: Not Given Tamsulosin HCl (Tamsulosin Hcl 0.4 Mg Capsule) 0.4 mg PO HS [facility] Last Admin: 12/25/23 20:39 Dose: 0.4 mg Vitamin D (Cholecalciferol 1,000 Units Tablet) 1,000 units PO BID [facility] Last Admin: 12/26/23 07:59 Dose: 1,000 units Sedation/Anesthesia: No previous sedation/anesthesia problems (including family history). [facility] Past Medical History Medical History (Updated 12/25/23 @ 12:36 by Davian Ellsworth MD) BPH (benign prostatic hyperplasia) Chronic kidney disease GERD (gastroesophageal reflux disease) Hard of hearing hearing aid Histo
--- NOTE | 2023-12-26 11:49 | P.PCNCC_ITS ---
Cardiac Cath Procedure Note Date of procedure:: 12/26/23 Performing physician:: Remigio Bourne MD Indication:: chest pain, elevated troponin Brief clinical history:: this is an 88-year-old man who entered the hospital after having a couple of episodes of chest pain. His troponin levels were modestly elevated prompting recommendation to cancel DNR orders and arrange for coronary angiogram. Procedure Procedure performed:: Coronary angiography left ventriculography Sedation/Medication given:: fentanyl 25 mg Versed 2 mg case start 112 case end time 11:42 a.m. sedation provided by Kaylee Ennis RN, trained observer Access site:: right femoral artery Estimated blood loss:: minimal Procedure note:: patient was brought to the cardiac catheterization lab where the right femoral triangle was prepared and draped in the normal fashion. Anesthesia was provided with 1% lidocaine infiltrated locally. Using modified Seldinger technique the 5 Mauritian vascular sheath was placed. After this I performed left heart catheterization. Initially a 5 Mauritian FL4 catheter was used to engage and inject the left coronary artery. A 5 Mauritian JR4 catheter was used to engage and inject the right coronary artery. The 5 Mauritian angled pigtail catheter was used to perform left ventriculography in the UP projection and demonstrates left- sided hemodynamics. Following this an angiogram was performed to the femoral artery through the sheath after which the case was terminated. The patient was taken to the holding area for manual sheath. The procedure was well tolerated and uncomplicated. Findings:: Hemodynamics: Central aortic pressure 146 over 60 left ventricle 146/0 end- diastolic 14 gradient on pullback across the aortic valve. Left ventricle: The LV is size. There is adequate contractility noted in all segments the global ejection fraction is 50-55% by visual estimation. The left main coronary artery is nicely patent the left anterior descending is a moderate caliber artery extending down to the apex. There is some minimal luminal plaquing in the proximal LAD but there are no stenotic lesions identified throughout its extent circumflex is a moderate caliber artery giving rise to 2 marginal branches and a posterior. The circumflex system is smooth and angiographically normal in appearance the right coronary is moderate to large in caliber and dominant to the posterior circulation. The right coronary proper is angiographically normal. The RPDA is normal. The RPL branches are small but angiographically unremarkable. Conclusion:: 1. Right coronary dominant circulation no angiographic evidence of significant coronary artery disease 2. preserved left ventricular systolic contractility Remigio Bourne MD [facility]
--- NOTE | 2023-12-26 11:59 | PM.PNCARD ---
Progress Note: A&P Assessment and Plan (1) Chest pain: Code(s): R07.9 - Chest pain, unspecified Status: Acute Plan 88-year-old man admitted with chest pain with concern regarding acute coronary syndrome /non-STEMI. Left heart catheterization done a short time ago however demonstrates no evidence of coronary disease to speak of and therefore symptoms are noncardiac in my opinion. He does not require further cardiac investigation of this chest pain and if he is stable with no signs of groin hematoma complications later this evening he can be discharged for follow-up with his PCP. Remigoi Bourne MD [facility] Subjective Date/time seen: date of service:12/26/23 11:59 Interval history: Follow-up visit in this 88-year-old man with: Clinical diagnosis of acute coronary syndrome with chest pain and modest troponin elevation. Left heart catheterization completed a short time ago however demonstrates no evidence of any significant coronary disease and preserved left ventricular systolic function. At this point no further cardiac investigation of this chest pain is warranted or necessary. If he is stable this evening following bed rest with no evidence of groin hematoma complication he can be discharged for outpatient outpatient follow-up. Exam Const: General: comfortable and no acute distress Other: Pleasant elderly gentleman no distress HENMT: Mouth: Yes moist mucous membranes Eyes: Sclera: sclerae normal Neck: Neck: supple and no JVD Other: carotid pulses are normal bilaterally Resp: Effort & Inspection: normal respiratory effort Auscultation: clear to auscultation bilaterally Cardio: Rate: regular rate Rhythm: regular rhythm Other: no audible murmur or gallop GI: GI Palp: Yes Soft to palpation Auscultation: normal bowel sounds Skin: General skin exam: normal color Neuro: Other: alert and oriented x3 Extrem: General: normal to inspection Objective Data Vital Signs Vital Signs: Vital Signs - 24 hr 12/25/23 12:00 12/25/23 12:00 12/25/23 14:00 Temperature Pulse Rate 55 L 55 L 67 Respiratory Rate 18 Blood Pressure Pulse Oximetry 96 Oxygen Delivery Room Air Fraction of Inspired Oxygen 12/25/23 16:00 12/25/23 16:00 12/25/23 16:00 Temperature 37.1 C Pulse Rate 56 L 54 L 54 L Respiratory Rate 18 18 Blood Pressure 173/62 H Pulse Oximetry 99 99 Oxygen Delivery Room Air Fraction of Inspired Oxygen 12/25/23 18:00 12/25/23 20:35 12/25/23 20:39 Temperature 36.6 C Pulse Rate 63 57 L 61 Respiratory Rate 18 Blood Pressure 142/64 H Pulse Oximetry 97 Oxygen Delivery Fraction of Inspired Oxygen 12/25/23 20:00 12/25/23 20:35 12/25/23 22:00 Temperature Pulse Rate 57 L 51 L Respiratory Rate Blood Pressure Pulse Oximetry Oxygen Delivery Room Air Fraction of Inspired Oxygen 12/25/23 23:08 12/26/23 00:00 12/26/23 00:00 Temperature 36.6 C Pulse Rate 55 L 54 L Respiratory Rate 18 Blood Pressure 145/67 H Pulse Oximetry 97 Oxygen Delivery Room Air Fraction of Inspired Oxygen 12/26/23 02:00 12/26/23 04:00 12/26/23 04:00 Temperature Pulse Rate 58 L 51 L Respiratory Rate Blood Pressure Pulse Oximetry Oxygen Delivery Room Air Fraction of Inspired Oxygen 12/26/23 04:07 12/26/23 06:00 12/26/23 06:42 Temperature 36.6 C 36.6 C Pulse Rate 49 L 52 L 54 L Respiratory Rate 16 18 Blood Pressure 133/65 128/68 Pulse Oximetry 96 98 Oxygen Delivery Fraction of Inspired Oxygen 12/26/23 07:58 12/26/23 08:00 12/26/23 08:00 Temperature Pulse Rate 60 57 L 57 L Respiratory Rate 18 Blood Pressure Pulse Oximetry 98 Oxygen Delivery Room Air Fraction of Inspired Oxygen 12/26/23 09:22 12/26/23 10:00 Temperature Pulse Rate 57 L Respiratory Rate Blood Pressure Pulse Oximetry 95 Oxygen Delivery Room Air Fr
--- NOTE | 2023-12-26 13:01 | IVDEFINITY ---
Prior to administration of IV Definity the patient was educated on the risks and benefits of the imaging enhancing agent including potential adverse side effects. The patient verbalized understanding. Allergies were verified. No exclusion criteria were identified and at least one of the following inclusion criteria were met: 1) physician request, 2) patient technically difficult to image (per the [place] [employer]ocardi[employer] guidelines of two or more segments not discernable within the apical view), or 3) questionable left ventricular function. ?
[2023-12-26] MEDS: HYDROcodone/acetaminophen (*CRX) 5-325 MG TABLET 1 TAB PO (13:08)
--- NOTE | 2023-12-26 14:42 | PM.DS ---
DS: Admitting Diagnosis Discharge Date 12/25 Admitting Diagnosis chest pain DS: Discharge Diagnosis Discharge Diagnosis (1) Acute non-ST elevation myocardial infarction (NSTEMI): Code(s): I21.4 - Non-ST elevation (NSTEMI) myocardial infarction Status: Acute Assessment and Plan: - EKG, initial: sinus rhythm with occasional supraventricular premature complexes, RBBB, minimal Q-waves anterolateral leads, consider high lateral infarct age indeterminate, baseline artifact. - EKG, repeat (1): no significant change when compared to EKG done earlier today. - CXR: No acute cardiopulmonary disease - chest CTA: No PE, cardiomegaly, small sliding-type hiatal hernia - Troponin: <0.012 -> 0.072 -> 0.347 - ASA 324 refused by patient and nitro SL PRN - cardiology consulted, awaiting recs - started on heparin gtt - add lipid panel - BNP 324, no previous echo on file. no evidence of pulmonary edema on imaging. - NPO at midnight in case of need for procedures - telemetry monitoring and admission to IMU 12/24 - cardiology recommendation reviewed: Patient presents with an ACS in the form of a non ST-elevation myocardial infarction. Start aspirin 81 mg p.o. daily. He is on heparin drip and this should be continued. P.r.n. nitroglycerin for chest pain. Start atorvastatin 40 mg daily. Metoprolol tartrate 25 mg p.o. b.i.d. goal for blood pressure and non-STEMI. 2D echocardiogram with Doppler. Despite his DNR status at this point, I have talked him about possibility of cardiac catheterization and his functionality. Patient lives independently and wishes to proceed with cardiac catheterization and would like to be resuscitated if ?reasonable chance of survival ?. Will keep NPO after midnight for coronary angiogram tomorrow - follow heparin protocol -monitor coag PT/aPTT per protocol - bleeding precautions 12/25- cath today (2) Chronic kidney disease: Qualifiers: Chronic kidney disease stage: unspecified stage Qualified Code(s): N18.9 - Chronic kidney disease, unspecified Code(s): N18.9 - Chronic kidney disease, unspecified Status: Acute Assessment and Plan: - creatinine 1.5 and GFR 44, baseline - trend renal function - trend electrolytes, correct as needed Plan Final dx: ACS (non-STEMI) DS: Summary Hospital Course Hospital Course: 88-year-old male presents here with chest pain with PMH of CKD, lymphedema, IVC filter present, and BPH. The patient presents here from home via EMS for further evaluation of chest pain. Patient had acute onset of midsternal chest pain that started 1 hour prior to arrival. He describes the chest pain as nondescript, radiating into bilateral upper extremities, constant, and no aggravating/alleviating factors. Also reports episode of chest pain that occurred 4-5 days ago. He described the pain as brief, radiating into his bilateral upper extremities, and resolved without medication. Denies associated shortness of breath, palpitations, diaphoresis, nausea, or fatigue. No known cardiac history. FH - father had NE in his 70's. Chest pain resolved Shortly after arrival to the ED, states he still had small amount of pain while in the waiting room. No recurrent episodes of chest pain. No complaints at this time. Initial VS at presentation: 97? F, HR 73, RR 16, 159/83, and 100% on RA. ED workup showed: No leukocytosis, hemoglobin 12.1, normal coags, elevated D-dimer, creatinine 1.5 and GFR 44 (at baseline) initial negative and 2nd troponin 0.072, BNP 324. 12/24- pt is seen and examined. Asymptomatic- denies chest pain. Cardiology consult in place. NPO after midnight- cath in am. Pt is pleasant, very [place], denies chest pain, sob. 12/25- cardiac cath today- stable overnight- no chest pain, no sob, alert, pleasant per card.: Left heart catheterization done today- 12/25 however demonstrates no evidence of coronary disease to speak of and therefore symptoms are noncardiac in
--- NOTE | 2023-12-26 17:36 | PC.NURSE ---
Reviewed discharge instructions with patient. He is very hard of hearing, however verbalizes understanding. All instructions highlighted and discussed with patient to review them further with family in the event he should forget anything. Verbalizes understanding, stating I will review them with Ceci, as I am with her everyday .
== END 2023-12-26 17:54 | disposition home or self-care (01) | DRG 282 ==
LOC: ANHED 12:17 → ANHIMU 16:19
PROVIDERS: Internal Medicine; Specialist; Student in an Organized Health Care Education/Training Program; Admitting Provider Internal Medicine; Emergency Provider Student in an Organized Health Care Education/Training Program; Visit Provider Nurse Practitioner
PROC: 4A023N7 Measurement of Cardiac Sampling and Pressure, Left Heart, Percutaneous Approach (ICD-10-PCS; CPT 93452; principal; 2023-12-26 10:00)
DX: I21.4 Non-ST elevation (NSTEMI) myocardial infarction (principal); H91.90 Unspecified hearing loss, unspecified ear; I45.10 Unspecified right bundle-branch block; K21.9 Gastro-esophageal reflux disease without esophagitis; N40.0 Benign prostatic hyperplasia without lower urinary tract symptoms; N18.9 Chronic kidney disease, unspecified; Z86.718 Personal history of other venous thrombosis and embolism; Z95.828 Presence of other vascular implants and grafts; Z87.891 Personal history of nicotine dependence; Z66 Do not resuscitate
CPT/HCPCS: 36415; 71046; 71275; 80053; 80061; 83690; 83880; 84484; 85025; 85380; 85610; 85730; 93005; 93458; 93922; 96365; 99285; A9270; C1887; C1894; C8929; G0378; J0461; J1644; J2250; J3010; J7030; J7040; Q9957; Q9967